=== PATIENT | female | born 1970 | race Caucasian/White ===

== ENCOUNTER 2019-12-02 16:38 | Outpatient (REF) | payer OTHER, SELFPAY | END 2019-12-02 16:39 | disposition home or self-care (01) | LOC: HO.LAB 16:38 | PROVIDERS: PCP Internal Medicine; Visit Provider Internal Medicine | DX: Z20.828 Contact with and (suspected) exposure to other viral communicable diseases (principal) | CPT/HCPCS: 36415; 87635 ==

== ENCOUNTER 2020-01-17 07:20 | Emergency (ER) | payer OTHER, SELFPAY ==
--- NOTE | 2020-01-17 07:26 | ED_ITS ---
HPI - Abdominal Pain General Chief Complaint: Abdominal Pain Stated Complaint: abd pain Time Seen by Provider: 01/17/20 07:26 Source: patient Mode of arrival: ambulatory Limitations: no limitations History of Present Illness HPI narrative: woke up at 3am with epigastric pain with nausea. Patient has a history of gastric bypass, hysterectomy and tubal ligation. MD elicited complaint: abdominal pain Onset (ago): hour(s) Pain Consistency: constant Location: epigastric Severity: moderate Quality: stabbing and sharp Radiation: epigastric Migration to: other (back) Exacerbating factors: other (sitting) Associated symptoms: nausea Related Data Previous Rx's Medication Instructions Recorded sucralfate [Carafate] 10 ml PO BID #200 ml 01/17/20 Allergies Allergy/AdvReac Type Severity Reaction Status Date / Time Sulfacet-R Allergy Unknown Hives Uncoded 01/17/20 07:34 Review of Systems Constitutional: Reports no additional constitutional complaints Eyes: Reports no additional eye complaints Denies dizziness Cardiovascular: Reports no additional cardiovascular complaints Respiratory: Reports as per HPI Gastrointestinal: Reports no additional gastrointestinal complaints Genitourinary: Reports no additional female genitourinary complaints Musculoskeletal: Reports no additional musculoskeletal complaints Skin/Breast: Denies rash Reports system reviewed and no additional complaints, except as documented, Denies dizziness and Denies Sensory deficit (Neuro) Psychiatric: Denies anxiety Physical Exam Vital Signs: Vital Signs: Last Vital Signs Temp 97.9 F 01/17/20 07:29 Pulse 78 01/17/20 10:24 Resp 16 01/17/20 10:24 BP 112/56 L 01/17/20 10:24 Pulse Ox 98 01/17/20 10:24 Body Mass Index 24.2 Const: General: healthy appearing Nutritional Appearance: average body habitus Orientation/consciousness: oriented to person and patient oriented x3 Limitations: no limitations HENMT: Head: Yes normal to inspection Ears: external ears normal General nose exam: Normal external nose present Mouth: Normal oral and palatal mucosa present and oropharynx normal Throat: Yes posterior oropharynx normal Eyes: General: appearance normal, both eyes and all related structures Neck: Other: supple Neck: Yes normal visual inspection Chest: Chest palpation & inspection: normal inspection of the chest Resp: Auscultation: clear to auscultation bilaterally Cardio: Jugular venous distension: no JVD Rate: regular rate Rhythm: regular rhythm Heart sounds: S1 normal heart sound present and S2 normal heart sound present GI: Other: epigastric pain Inspection: Yes normal to inspection Palpation (GI): Soft to palpation, Tenderness to palpation present (GI) and No hepatosplenomegaly present Auscultation: normal bowel sounds : Other: rectal heme negative General: Yes no CVA tenderness Back/Spine/Pelvis: Back: no CVA tenderness Skin: General skin exam: no rashes or lesions noted Neuro: General: oriented to person and patient oriented x3 Cranial nerves: Yes CN's II-XII intact bilaterally Motor exam (neuro): 5/5 motor strength present throughout Sensory Exam: No Sensory deficit (Neuro) Extrem: General: Yes normal to inspection Psych: Appearance: grossly normal Course Course Course Narrative: unofficial bedside ultrasound show no stones Reevaluation(s) Reevaluation #1: resting comfortably MDM - Abdominal Pain MDM Narrative Medical decision making narrative: LFTs, lipase all normal. Slight HCT drop, rectal heme negative will start carafate for gastritis Differential Diagnosis Differential diagnosis: Likely abdominal pain and gastritis Lab Data Result diagrams: 01/17/20 08:11 01/17/20 08:11 Labs: Lab Results 01/17/20 01/17/20 01/17/20 Range/Units 08:11 08:11 08:11 WBC 7.4 (4.8-10.8) X10*3/uL RBC 4.46 (4.20-5.50) X10*6/uL Hgb 13.0 (12.0-16.0) g/dl Hct 39.3 (37-47) % MCV 88.1 (80-98) fL MCH 29.1 (27.0-33.0) pg MCHC 33.1 (31.0-35.0) g/dl RDW 12.6 (11.0-16.0) % Plt Count 254 (160-400) X10*3/uL MPV 9.8 (9.4-12.3) fL Immature Gran % (Auto) 0.3 (0.0-0.4) % Neut % (Auto) 51.3 (45-73) % Lymph % (Auto) 34.1 (20-40) % Grayson % (Auto) 8.7 (2-11) % Eos % (Auto) 4.8 H (0-4) % Baso % (Auto) 0.8 (0-2) % Lymph # (Auto) 2.5 (1.2-4.9) X10*3/uL Grayson # (Auto) 0.7 (0.1-1.2) X10*3/uL Eos # (Auto) 0.4 (0.0-0.4) X10*3/uL Baso # (Auto) 0.1 (0.0-0.2) X10*3/uL Abs Immat Gran (auto) 0.02 (0.00-0.03) X10*3/uL Absolute Neuts (auto) 3.8 (2.0-8.3) X10*3/uL Absolute Nucleated RBC 0.000 (0.0-0.012) X10*3/uL Nucleated RBC % (auto) 0.0 (0.0-0.2) /100WBC Sodium 139 (135-145) mmol/L Potassium 3.8 (3.3-5.1) mmol/l Chloride 108 (96-108) mmol/L Carbon Dioxide 23 (22-29) mmol/L Anion Gap 12 (12-20) BUN 10 (9-16) mg/dL Creatinine 0.67 (0.5-1.4) mg/dL Estim Creat Clear Calc 86.7 Estimated GFR > 60 Random Glucose 148 H (60-115) mg/dL Calcium 8.3 L (8.4-10.2) mg/dL Total Bilirubin 0.5 (0.0-1.0) mg/dL Direct Bilirubin 0.2 (0.0-0.5) mg/dL AST 13 (5-31) U/L ALT 14 (0-31) U/L Alkaline Phosphatase 54 (39-117) U/L Total Protein 6.0 L (6.5-8.0) g/dL Albumin 3.6 (3.5-5.0) g/dL Lipase 19 Cancelled (8-78) U/L Discharge Plan Discharge Clinical Impression: Gastritis Qualifiers: Gastritis type: unspecified gastritis Chronicity: acute Gastritis bleeding: without bleeding Qualified Code(s): K29.00 - Acute gastritis without bleeding Patient Disposition: Home, Self-Care Instructions: Gastritis (ED) Prescriptions: New sucralfate [Carafate] 100 mg/mL suspension 10 ml PO BID Qty: 200 RF: 0 Referrals: Po,Althea Ken MD [Primary Care Provider] - 2 days [facility] Past Medical History Surgical History (Updated 01/17/20 @ 07:32 by Tania Enciso) Gastric bypass status for obesity H/O tubal ligation H/O: hysterectomy Social History Social History Smoking Status: Former smoker Use of substances other than those prescribed or required for medical reasons: No Advance Directives: No Advance Directives Information Provided: Yes
[2020-01-17 07:29] VITALS: BP 136/52; PULSE 76; RESP 16; TEMP 36.6; O2SAT 100; BMI 24.2
[2020-01-17 08:18] LABS: MANUAL DIFF FLAG NO
[2020-01-17 08:21] LABS: Basophils Absolute Auto 0.1 X10*3/uL (0.0-0.2); Basophils Percent Auto 0.8 % (0-2); Eosinophils Absolute Auto 0.4 X10*3/uL (0.0-0.4); Eosinophils Percent Auto 4.8 % (0-4); Hematocrit 39.3 % (37-47); Imm Gran Abs Auto 0.02 X10*3/uL (0.00-0.03); Imm Gran Pct Auto 0.3 % (0.0-0.4); Lymphocytes Absolute Auto 2.5 X10*3/uL (1.2-4.9); Lymphocytes Percent Auto 34.1 % (20-40); Mean Corpuscular HGB Conc 33.1 g/dl (31.0-35.0); Mean Corpuscular Hemoglobin 29.1 pg (27.0-33.0); Mean Corpuscular Volume 88.1 fL (80-98); Mean Platelet Volume 9.8 fL (9.4-12.3); Monocytes Absolute Auto 0.7 X10*3/uL (0.1-1.2); Monocytes Percent Auto 8.7 % (2-11); Neutrophils Absolute Auto 3.8 X10*3/uL (2.0-8.3); Neutrophils Percent Auto 51.3 % (45-73); Platelet Count 254 X10*3/uL (160-400); Red Blood Count 4.46 X10*6/uL (4.20-5.50); Red Cell Distribution Width 12.6 % (11.0-16.0); White Blood Count 7.4 X10*3/uL (4.8-10.8)
[2020-01-17] MEDS: Pantoprazole Sodium 40 MG/10 ML VIAL IVPUSH (08:23)
[2020-01-17] MEDS: Magnesium Hydrox/Alum Hydrox 30 ML ORAL.SUSP PO (08:24)
[2020-01-17] MEDS: PHENobarb/Hyoscy/Atropine/Scop 10 ML ELIXIR PO (08:24)
[2020-01-17] MEDS: ondansetron HCL 4 MG/2 ML VIAL IVPUSH (08:25)
[2020-01-17] MEDS: Lidocaine HCl Viscous 2 % 15 ML SOLUTION MUCOUS MEM (08:25)
[2020-01-17 08:48] LABS: Alanine Aminotransferase 14 U/L (0-31); Albumin Level 3.6 g/dL (3.5-5.0); Alkaline Phosphatase 54 U/L (39-117); Anion Gap 12 (12-20); Aspartate Amino Transferase 13 U/L (5-31); Bilirubin Direct 0.2 mg/dL (0.0-0.5); Bilirubin Total 0.5 mg/dL (0.0-1.0); Blood Urea Nitrogen 10 mg/dL (9-16); Calcium 8.3 mg/dL (8.4-10.2); Carbon Dioxide 23 mmol/L (22-29); Chloride 108 mmol/L (96-108); Creatinine Clr Calc Pharmacy 86.7; Estimated Glomerular Filt Rate > 60; Glucose Random 148 mg/dL (60-115); Lipase 19 U/L (8-78); Potassium 3.8 mmol/l (3.3-5.1); Sodium 139 mmol/L (135-145)
[2020-01-17 10:24] VITALS: BP 112/56; PULSE 78; RESP 16; O2SAT 98
--- NOTE | 2020-01-17 10:31 | PC.NURSE ---
Pt reports no pain s/p medication interventions. Dr El and this RN at bedside for rectal exam and negative. Plan for d/c home with new rx and f/u with pcp and GI
== END 2020-01-17 10:46 | disposition home or self-care (01) ==
PROVIDERS: Emergency Provider Emergency Medicine; PCP Internal Medicine
DX: R10.13 Epigastric pain (principal); K29.00 Acute gastritis without bleeding; Z87.891 Personal history of nicotine dependence
CPT/HCPCS: 36415; 80048; 80076; 83690; 85025; 96374; 96375; 99284; J2405

== ENCOUNTER 2020-01-24 06:28 | Outpatient (REF) | payer OTHER, SELFPAY | END 2020-01-24 06:29 | disposition home or self-care (01) | LOC: HO.LAB 06:28 | PROVIDERS: Visit Provider Internal Medicine | DX: Z20.828 Contact with and (suspected) exposure to other viral communicable diseases (principal) | CPT/HCPCS: C9803; U0003 ==

== ENCOUNTER 2021-09-11 15:51 | Outpatient (REF) | payer OTHER, SELFPAY ==
--- NOTE | ~2021-09-11 | MM_ITS ---
EXAMINATION: MM SCREENING DIGITAL BREAST TOMOSYNTHESIS, BILATERAL CLINICAL INFORMATION: Screening. Asymptomatic. The lifetime risk of breast cancer based on the Tyrer-Cuzick Model is 5%. COMPARISON: Mammography: 01/25/2018, 12/23/2017, 12/16/2016, 02/28/2015 TECHNIQUE: Digital breast tomosynthesis is performed in both the craniocaudal and mediolateral oblique views along with computer-aided detection (CAD). Synthesized 2D images are generated from the tomosynthesis. FINDINGS: There are scattered areas of fibroglandular density (ACR BI-RADS breast composition Category b). There are no significant masses, abnormal calcifications, or other abnormalities. Breast tissue composition borders on predominantly fatty. Background stromal markings are normal. No developing density. No significant changes. MM/MM tomosynthesis screening BI IMPRESSION: No mammographic evidence of malignancy. ASSESSMENT: BI-RADS 1: Negative RECOMMENDATION: Routine annual mammography screening. This patient's information was entered into a reminder system with a target due date for their next mammogram.
== END 2021-09-11 15:52 | disposition home or self-care (01) ==
LOC: HO.MAMMO 15:51
PROVIDERS: Visit Provider Internal Medicine
DX: Z12.31 Encounter for screening mammogram for malignant neoplasm of breast (principal)
CPT/HCPCS: 77063; 77067

== ENCOUNTER 2022-02-19 06:00 | Outpatient (REF) | payer OTHER, SELFPAY ==
[2022-02-19 07:25] LABS: Hematocrit 39.9 % (37.0-47.0); Hemoglobin 12.7 g/dl (12.0-16.0); Mean Corpuscular HGB Conc 31.8 g/dl (31.0-35.0); Mean Corpuscular Hemoglobin 26.7 pg (27.0-33.0); Mean Corpuscular Volume 83.8 fL (80.0-98.0); Mean Platelet Volume 9.9 fL (9.4-12.3); Platelet Count 281 X10*3/uL (160-400); Red Blood Count 4.76 X10*6/uL (4.20-5.50); Red Cell Distribution Width 13.2 % (11.0-16.0); White Blood Count 7.9 X10*3/uL (4.8-10.8)
[2022-02-19 07:36] LABS: Estimated Average Glucose 180 mg/dL; Hemoglobin A1c % 7.9 %
[2022-02-19 08:10] LABS: Alanine Aminotransferase 17 U/L (0-31); Alkaline Phosphatase 80 U/L (39-117); Anion Gap 12 (12-20); Aspartate Amino Transferase 15 U/L (5-31); Bilirubin Total 0.5 mg/dL (0.0-1.0); Blood Urea Nitrogen 8 mg/dL (9-16); Calcium 9.5 mg/dL (8.4-10.2); Carbon Dioxide 27 mmol/L (22-29); Chloride 105 mmol/L (96-108); Cholesterol 171 mg/dL; Estimated Glomerular Filt Rate > 60; Glucose Random 203 mg/dL (60-115); HDL Cholesterol 62 mg/dL; LDL Cholesterol Calculated 89 mg/dl; Potassium 4.5 mmol/L (3.3-5.1); Sodium 139 mmol/L (135-145); TSH reflex Free T4 1.52 uIU/mL (0.32-4.0); Total Protein 6.7 g/dL (6.5-8.0); Triglycerides 103 mg/dL; Vitamin D 25-OH Total 16.5 ng/mL (>30)
[2022-02-19 08:23] LABS: Folate 17.6 ng/mL (> or = 4.0)
[2022-02-19 08:49] LABS: Vitamin B12 454 pg/mL (200-900)
== END 2022-02-19 06:01 | disposition home or self-care (01) ==
LOC: HO.LAB 06:00
PROVIDERS: PCP Internal Medicine; Visit Provider Nurse Practitioner Family
DX: Z13.29 Encounter for screening for other suspected endocrine disorder (principal); E78.00 Pure hypercholesterolemia, unspecified; E11.65 Type 2 diabetes mellitus with hyperglycemia; I10 Essential (primary) hypertension
CPT/HCPCS: 36415; 80053; 80061; 82306; 82607; 82746; 83036; 84443; 85027

== ENCOUNTER 2022-03-23 10:29 | Emergency (ER) | payer OTHER, SELFPAY ==
[2022-03-23 10:33] VITALS: BP 127/78; PULSE 84; RESP 18; TEMP 36.7; O2SAT 97; BMI 25.7
--- NOTE | 2022-03-23 10:39 | ED_ITS ---
HPI - Skin/Abscess/Foreign Bdy General Chief complaint: Skin/Abscess/Foreign Body Stated complaint: swollen abscess on head Time Seen by Provider: 03/23/22 10:37 Source: patient Mode of arrival: ambulatory History of Present Illness HPI narrative: 51-year-old female with a past medical history of bipolar, HLD, HTN, insomnia, IBS, diabetes, presenting to the ED complaining of infected pimple/abscess to left forehead x1 week. States area initially started off small, tried to pick at it herself at home, then developed increasing swelling and pain since last night. Reports mild continue drainage from area. Denies fever, chills, sore throat, ear pain MD complaint: abscess/boil Onset (ago): day(s) Related Data Home Medications Medication Instructions Recorded Confirmed bupropion HCl 100 mg tablet,12 hr 100 mg PO TID 04/30/20 08/21/21 sustained-release (Wellbutrin SR) hydroxyzine pamoate 25 mg capsule 25 mg PO BID PRN 04/30/20 08/21/21 (Vistaril) lamotrigine 200 mg tablet 200 mg PO BID 04/30/20 08/21/21 zolpidem 10 mg tablet (Ambien) 10 mg PO BEDTIME PRN 04/30/20 08/21/21 Previous Rx's Medication Instructions Recorded meclizine 25 mg tablet 25 mg PO BID PRN dizziness 1 week 02/07/21 #14 tabs multivitamin (Daily-Emelyn tablet) 1 tab PO DAILY #90 tabs 05/17/21 pantoprazole 40 mg tablet,delayed 40 mg PO DAILY 90 days #90 tabs 12/22/21 release blood sugar diagnostic (FreeStyle #100 ea 02/20/22 Lite Strips) blood-glucose meter (FreeStyle #1 ea 02/20/22 Lite Meter kit) cholecalciferol (vitamin D3) 50 50 mcg PO DAILY #90 tabs 02/20/22 mcg (2,000 unit) tablet lancets 28 gauge (FreeStyle #100 ea 02/20/22 Lancets) metformin 500 mg tablet,extended 500 mg PO BID #60 tabs 02/20/22 release 24 hr cephalexin 500 mg capsule 500 mg PO QID 7 days #28 caps 03/23/22 doxycycline hyclate 100 mg tablet 100 mg PO BID 7 days #14 tabs 03/23/22 Allergies Allergy/AdvReac Type Severity Reaction Status Date / Time Sulfacet-R Allergy Unknown Hives Uncoded 03/23/22 10:35 Review of Systems Review of Systems: Constitutional: No Fever, No Chills ENT/Mouth: No Ear Pain, No Nasal Congestion, No Sinus Pain, No Hoarseness, No sore throat, No Rhinorrhea, No Swallowing Difficulty Cardiovascular: No Chest Pain, No SOB Respiratory: No Cough, No Wheezing Gastrointestinal: No Nausea, No Vomiting, No Diarrhea, No Constipation, No Abdominal pain Musculoskeletal: No joint pain, No Myalgias, No Joint Swelling Skin: +Skin Lesions, No rash Neuro: No Weakness, No Numbness, No Paresthesias Yes all other systems are reviewed and are negative Constitutional: Constitutional: Reports as per [facility] Past Medical History Attestation statement: The following information was validated with the patient. Medical History Allergic rhinitis Bipolar disorder Carpal tunnel syndrome ZHAO I (cervical intraepithelial neoplasia I) Hypercholesterolemia Hypertension Insomnia Irritable bowel syndrome Left otitis media Type 2 diabetes mellitus with hyperglycemia Urinary incontinence Vitamin D deficiency Surgical History Gastric bypass status for obesity H/O tubal ligation H/O: hysterectomy Social History Social History Housing: House Alcohol intake: current Alcohol intake frequency: does not drink Patient Tobacco Use Status: Former Tobacco user Tobacco use type: Cigarette e-Cigarette/Vaping Use: Never Used Advance Directives: No Advance Directives Information Provided: Yes Patient : No service: No Current occupational status: employed Cognitive needs: No Hearing needs: No Vision needs: No Physical Exam Vital Signs: Vital Signs: Last Vital Signs Temp 98.0 F 03/23/22 10:33 Pulse 84 03/23/22 10:33 Resp 18 03/23/22 10:33 BP 127/78 03/23/22 10:33 Pulse Ox 97 03/23/22 10:33 O2 Del Method 03/23/22 10:33 BMI result Body Mass Index 25.7 Const: General: cooperative, healthy appearing and no acute distress Orientation/consciousness: patient oriented x3 Limitations: no limitations HEENT: Other: + pointing erythematous abscess/pimple to left upper forehead with mild overlying scabbing. +ttp. +Extending swelling and tenderness to left eyebrow and into hairline. No fluctuance Head: Yes atraumatic Ears: hearing grossly normal bilaterally, TM's normal bilaterally and mastoids normal General nose exam: Normal external nose present Face and sinus: Yes normal facial exam Mouth: Normal oral and palatal mucosa present Throat: Yes posterior oropharynx normal, Yes tonsils normal, Yes uvula midline, No peritonsillar mass, No uvula laterally displaced and No uvular edema Eyes: General: appearance normal, both eyes and all related structures EOM: EOMs intact bilaterally Neck: Neck: Yes normal visual inspection, Yes no lymphadenopathy, Yes no meningeal signs and No anterior neck swelling Resp: Effort & Inspection: normal respiratory effort and no respiratory distress Cardio: Rate: regular rate Skin: Rashes: no rashes Wounds: no wounds Neuro: General: patient oriented x3, tone normal and no meningeal signs Gait exam (Neuro): Normal gait present Extrem: General: Yes normal to inspection Medications Administered Discontinued Medications Generic Name Dose Route Start Last Admin Trade Name Freq PRN Reason Stop Dose Admin Lidocaine HCl 2 ml 03/23/22 10:46 03/23/22 11:25 Lidocaine Hcl 1 % Mpf 2 Ml Vial INFILTRATI 03/23/22 10:47 2 ml ONCE ONE Administration Medical Decision Making Medical Decision Making [facility] Narrative: 51-year-old female with a past medical history of bipolar, HLD, HTN, insomnia, IBS, diabetes, presenting to the ED complaining of infected pimple/abscess to left forehead x1 week. On exam vital signs stable, NAD, nontoxic appearing, physical exam as above. Concern for infected acne vulgaris/abscess with surrounding edema and cellulitis. Low suspicion for deeper infection, no evidence of otitis. No appreciable neck swelling or torticollis. Oropharynx WNL. Plan: I & D, p.o. antibiotics Differential Diagnosis Differential Diagnoses: The differential diagnosis associated with the presentation includes As above External Record Review External record reviewed: Office record and Outpatient record Prescription Management I considered prescription management with: Pain Medication and Antibiotic Procedures Abscess I/D Site: face Side (if applicable): left Local Anesthetic: lidocaine 1% Amount of anesthesia used (mL): 0.5 Technique: incised with blade Sent for culture/gram staining?: No Irrigation: No Packing used?: none Discharge Plan Discharge Clinical Impression: Abscess, Cellulitis Patient Disposition: Home, Self-Care Instructions: Cellulitis (ED), Abscess (ED) Additional Instructions: Your abscess was open today in the emergency department. Apply warm compresses at home. Take Keflex and doxycycline as prescribed. PLEASE BE RE-EVALUATED IN 2 DAYS If area worsens, spreads, becomes red, has pus drainage or your fever return to the emergency department Prescriptions: New cephalexin 500 mg capsule 500 mg PO QID 7 Days Qty: 28 0RF doxycycline hyclate 100 mg tablet 100 mg PO BID 7 Days Qty: 14 0RF No Action multivitamin [Daily-Emelyn] Tablet 1 tab PO DAILY Qty: 90 3RF pantoprazole 40 mg tablet,delayed release (DR/EC) 40 mg PO DAILY 90 Days Qty: 90 1RF cholecalciferol (vitamin D3) 50 mcg (2,000 unit) tablet 50 mcg PO DAILY Qty: 90 0RF metformin 500 mg tablet extended release 24 hr 500 mg PO BID Qty: 60 2RF hydroxyzine pamoate [Vistaril] 25 mg capsule 25 mg PO BID PRN bupropion HCl [Wellbutrin SR] 100 mg tablet sustained-release 12 hr 100 mg PO TID lamotrigine 200 mg tablet 200 mg PO BID zolpidem [Ambien] 10 mg tablet 10 mg PO BEDTIME PRN meclizine 25 mg tablet 25 mg PO BID PRN (Reason: dizziness) 7 Days Qty: 14 0RF (DME) blood-glucose meter [FreeStyle Lite Meter] Kit See Rx Instructions .ROUTE .MEDSUPPLY Qty: 1 0RF Rx Instructions: As directed (DME) FreeStyle Lite Strips Strip See Rx Instructions .ROUTE .MEDSUPPLY Qty: 100 3RF Rx Instructions: As directed check the BS QD (DME) lancets [FreeStyle Lancets] 28 gauge misc See Rx Instructions .ROUTE .MEDSUPPLY Qty: 100 3RF Rx Instructions: As directed check BS QD Referrals: Po,Althea Ken MD [Primary Care Provider] - 2 days Stand Alone Forms: Work/School Release Interventions: ED Discharge Assessment Last Done: 03/23/22 11:27 Discharge Date/Time: 03/23/22 11:28
[2022-03-23] MEDS: Lidocaine HCl 1 % MPF 2 ML VIAL INFILTRATI (11:25)
== END 2022-03-23 11:28 | disposition home or self-care (01) ==
PROVIDERS: Emergency Provider Emergency Medicine; PCP Internal Medicine
DX: L02.01 Cutaneous abscess of face (principal); Z79.899 Other long term (current) drug therapy
CPT/HCPCS: 10060; 99284

== ENCOUNTER 2022-03-25 10:52 | Emergency (ER) | payer OTHER, SELFPAY ==
[2022-03-25 11:00] VITALS: BP 142/74; PULSE 89; RESP 16; TEMP 36.3; O2SAT 97; BMI 25.7
--- NOTE | 2022-03-25 11:02 | ED_ITS ---
HPI - General Adult General Chief complaint: Skin/Abscess/Foreign Body <MEAGHAN Palmer - Last Filed: 03/25/22 11:04> Stated complaint: Facial abscess/Reaction to meds? <MEAGHAN Palmer Last Filed: 03/25/22 11:04> Time Seen by Provider: 03/25/22 11:43 <MEAGHAN Palmer Last Filed: 03/25/22 11:04> Source: patient <MEAGHAN Saxena Last Filed: 03/25/22 13:33> Mode of arrival: ambulatory <MEAGHAN Saxena Last Filed: 03/25/22 13:33> Limitations: no limitations <MEAGHAN Saxena Last Filed: 03/25/22 13:33> History of Present Illness HPI narrative: 51-year-old female presenting to the ER with complaints of worsening swelling / redness to the left side of her forehead for the past few days worse today. Reports that she was seen here on 03/23/2022 and they attempted to I and D the abscess to her left forehead although she reports that the provider only got blood and no purulent discharge therefore she sent her home on Keflex and doxycycline although she reports she only took 2 doses of each medication and stop taking the medication due to the swelling went down for I and yesterday she was unable to open her eye. Although she reports today the redness and swelling to her I resolved and now she only has redness and swelling to the abscess. She denies any fevers or any other symptoms complaints or concerns at this time. <MEAGHAN Saxena Last Filed: 03/25/22 13:33> MD complaint: Recheck abscess <MEAGHAN Saxena Last Filed: 03/25/22 13:33> Related Data Home medications: Home Medications Medication Instructions Recorded Confirmed bupropion HCl 100 mg tablet,12 hr 100 mg PO TID 04/30/20 08/21/21 sustained-release (Wellbutrin SR) hydroxyzine pamoate 25 mg capsule 25 mg PO BID PRN 04/30/20 08/21/21 (Vistaril) lamotrigine 200 mg tablet 200 mg PO BID 04/30/20 08/21/21 zolpidem 10 mg tablet (Ambien) 10 mg PO BEDTIME PRN 04/30/20 08/21/21 Previous Rx's Medication Instructions Recorded meclizine 25 mg tablet 25 mg PO BID PRN dizziness 1 week 02/07/21 #14 tabs multivitamin (Daily-Emelyn tablet) 1 tab PO DAILY #90 tabs 05/17/21 pantoprazole 40 mg tablet,delayed 40 mg PO DAILY 90 days #90 tabs 12/22/21 release blood sugar diagnostic (FreeStyle #100 ea 02/20/22 Lite Strips) blood-glucose meter (FreeStyle #1 ea 02/20/22 Lite Meter kit) cholecalciferol (vitamin D3) 50 50 mcg PO DAILY #90 tabs 02/20/22 mcg (2,000 unit) tablet lancets 28 gauge (FreeStyle #100 ea 02/20/22 Lancets) metformin 500 mg tablet,extended 500 mg PO BID #60 tabs 02/20/22 release 24 hr cephalexin 500 mg capsule 500 mg PO QID 7 days #28 caps 03/23/22 doxycycline hyclate 100 mg tablet 100 mg PO BID 7 days #14 tabs 03/23/22 tramadol 50 mg tablet 50 mg PO Q8H PRN pain #14 tabs 03/25/22 <MEAGHAN Palmer - Last Filed: 03/25/22 11:04> Allergies/adverse reactions: Allergies Allergy/AdvReac Type Severity Reaction Status Date / Time Sulfacet-R Allergy Unknown Hives Uncoded 03/23/22 10:35 <MEAGHAN Palmer - Last Filed: 03/25/22 11:04> Review of Systems Review of Systems: Constitutional : Denies history of same, Denies any other sites involved, Denies IV drug use, Denies history of MRSA, Denies swollen glands, Denies injury, Denies Fever, Denies Chills, + Sig Pain, Denies Systemic symptoms Cardiovascular : No Chest Pain, No SOB Respiratory : No Dyspnea Gastrointestinal : No abdominal pain Musculoskeletal : No Joint Swelling Skin : + abscess with surrounding erythema, No skin laceration, No Foreign bodies, No spreading rash, Denies bites, Denies discharge, Neuro : No Weakness, No Numbness/tingling Psych : No SI/HI/thoughts of self injury <MEAGHAN Saxena - Last Filed: 03/25/22 13:33> Yes all other systems are reviewed and are negative <MEAGHAN Saxena - Last Filed: 03/25/22 13:33> [facility] Past Medical History Attestation statement: The following information was validated with the patient. <MEAGHAN Saxena - Last Filed: 03/25/22 13:33> Source: old records reviewed and nursing notes reviewed <MEAGHAN Saxena - Last Filed: 03/25/22 13:33> Medical History: Medical History Allergic rhinitis Bipolar disorder Carpal tunnel syndrome ZHAO I (cervical intraepithelial neoplasia I) Hypercholesterolemia Hypertension Insomnia Irritable bowel syndrome Left otitis media Type 2 diabetes mellitus with hyperglycemia Urinary incontinence Vitamin D deficiency <MEAGHAN Palmer - Last Filed: 03/25/22 11:04> Surgical History: Surgical History Gastric bypass status for obesity H/O tubal ligation H/O: hysterectomy <MEAGHAN Palmer - Last Filed: 03/25/22 11:04> Social History Social History: Social History Housing: House Alcohol intake: current Alcohol intake frequency: does not drink Patient Tobacco Use Status: Former Tobacco user Tobacco use type: Cigarette e-Cigarette/Vaping Use: Never Used Advance Directives: No Advance Directives Information Provided: Yes service: No Current occupational status: employed Cognitive needs: No Hearing needs: No Vision needs: No <MEAGHAN Palmer - Last Filed: 03/25/22 11:04> Physical Exam ED Vital Signs: Vital Signs - 24 hr 03/25/22 11:00 Temperature 97.3 F Pulse Rate 89 Respiratory Rate 16 Blood Pressure 142/74 H Pulse Oximetry 97 Oxygen Delivery Method Room Air BMI result Body Mass Index 25.7 <MEAGHAN Palmer - Last Filed: 03/25/22 11:04> Vital Signs - 24 hr 03/25/22 11:00 Temperature 97.3 F Pulse Rate 89 Respiratory Rate 16 Blood Pressure 142/74 H Pulse Oximetry 97 Oxygen Delivery Method Room Air BMI result Body Mass Index 25.7 Vital signs have been reviewed and all within normal limits <MEAGHAN Saxena - Last Filed: 03/25/22 13:33> Appearance: Alert. Oriented X3. No acute distress. Head: Normal external exam. Normocephalic. Eyes: PERRLA. EOMI. Conjunctiva and sclera normal. Eyelids normal. ENT: Pharynx normal. Uvula midline. Moist mucous membranes. No trismus noted. No drooling noted. No muffled voice noted. Neck: Normal inspection. Neck supple. FROM. No adenopathy. No meningeal signs. CVS: Normal heart rate and rhythm. Heart sound normal. No murmurs noted. Pulses normal throughout. Respiratory: No respiratory distress. Painless inspiration. Back: Full range of motion noted. Skin: Skin warm and dry. Normal skin color. Normal skin turgor. to left forehead patient has moderate soft tissue swelling / fluctuance with a purulent appearing abscess with mild surrounding erythema. No streaking or induration is noted. Patient does have mild soft tissue swelling to left periorbital area although there is no erythema to left periorbital area. Extraocular movements are intact. No additional rashes/lesions/lacerations noted. Extremities: Extremities exhibit normal range of motion. Extremities nontender. Neuro: Oriented X 3. No motor deficit. No sensory deficit. Reflexes normal. Normal steady gait. CN's II-XII intact bilaterally? <MEAGHAN Saxena - Last Filed: 03/25/22 13:33> Course Course Course Narrative: RME - 51 yo female presenting for evaluation of a left sided forehead abscess associated with new onset left sided facial swelling that started yesterday. Was seen here recently and started and keflex and doxycycline. Stopped taking keflex yesterday because she thought it might be an allergic reaction. Left sided facial swelling includes left eye that was swollen shut yesterday but improved today. <MEAGHAN Palmer - Last Filed: 03/25/22 11:04> Reevaluation(s) Reevaluation #1: IMP/Plan: abscess. No systemic toxicity, and pt looks well. patient does have surrounding cellulitis. No streaking noted. Not consistent with periorb ital cellulitis or orbital cellulitis. Not c/w nec fasc/ myositis/ DVT/ osteomyelitis. Patient now status post I&D of abscess. Patient tolerated procedure well. No complications. Will DC home with instructions to continue the antibiotics that she was started on 2 days ago and to finish them as prescribed. To follow up with primary care provider or here if any new or worsening symptoms. Patient understands agrees with this plan. <MEAGHAN Saxena - Last Filed: 03/25/22 13:33> Time: 13:28 <MEAGHAN Saxena - Last Filed: 03/25/22 13:33> Medications Administered Discontinued Medications Generic Name Dose Route Start Last Admin Trade Name Freq PRN Reason Stop Dose Admin Lidocaine HCl 5 ml 03/25/22 12:16 03/25/22 12:39 Lidocaine Hcl 1 % Mpf 5 Ml Vial SUBCUT 03/25/22 12:17 5 ml ONCE ONE Administration <MEAGHAN Palmer - Last Filed: 03/25/22 11:04> Medications Administered Discontinued Medications Generic Name Dose Route Start Last Admin Trade Name Freq PRN Reason Stop Dose Admin Lidocaine HCl 5 ml 03/25/22 12:16 03/25/22 12:39 Lidocaine Hcl 1 % Mpf 5 Ml Vial SUBCUT 03/25/22 12:17 5 ml ONCE ONE Administration <MEAGHAN Saxena - Last Filed: 03/25/22 13:33> Procedures Abscess I/D Site: face <MEAGHAN Saxena - Last Filed: 03/25/22 13:33> Side (if applicable): left <MEAGHAN Saxena - Last Filed: 03/25/22 13:33> Local Anesthetic: lidocaine 1% <MEAGHAN Saxena - Last Filed: 03/25/22 13:33> Amount of anesthesia used (mL): 5 <MEAGHAN Saxena - Last Filed: 03/25/22 13:33> Technique: incised with blade <MEAGHAN Saxena - Last Filed: 03/25/22 13:33> Amount of fluid expressed (mL): 2 <MEAGHAN Saxena Last Filed: 03/25/22 13:33> Sent for culture/gram staining?: No <MEAGHAN Saxena Last Filed: 03/25/22 13:33> Irrigation: Yes <MEAGHAN Saxena - Last Filed: 03/25/22 13:33> Packing used?: none <MEAGHAN Saxena - Last Filed: 03/25/22 13:33> Complications: other ( No complications patient tolerated procedure well) <MEAGHAN Saxena - Last Filed: 03/25/22 13:33> Discharge Plan Discharge Clinical Impression: Abscess of forehead <MEAGHAN Palmer Last Filed: 03/25/22 11:04> Patient Disposition: Home, Self-Care <MEAGHAN Palmer - Last Filed: 03/25/22 11:04> Instructions: Abscess Incision and Drainage (DC) <MEAGHAN Palmer - Last Filed: 03/25/22 11:04> Additional Instructions: Continue taking the antibiotics that you were prescribed on 03/23/2022 return if you develop any redness going down the face or inability to open the eye or any fevers any worsening symptoms. <MEAGHAN Palmer - Last Filed: 03/25/22 11:04> Prescriptions: New tramadol 50 mg tablet 50 mg PO Q8H PRN (Reason: pain) Qty: 14 0RF Rx Instructions: May partially fill upon patient request No Action multivitamin [Daily-Emelyn] Tablet 1 tab PO DAILY Qty: 90 3RF pantoprazole 40 mg tablet,delayed release (DR/EC) 40 mg PO DAILY 90 Days Qty: 90 1RF cholecalciferol (vitamin D3) 50 mcg (2,000 unit) tablet 50 mcg PO DAILY Qty: 90 0RF metformin 500 mg tablet extended release 24 hr 500 mg PO BID Qty: 60 2RF cephalexin 500 mg capsule 500 mg PO QID 7 Days Qty: 28 0RF doxycycline hyclate 100 mg tablet 100 mg PO BID 7 Days Qty: 14 0RF hydroxyzine pamoate [Vistaril] 25 mg capsule 25 mg PO BID PRN bupropion HCl [Wellbutrin SR] 100 mg tablet sustained-release 12 hr 100 mg PO TID lamotrigine 200 mg tablet 200 mg PO BID zolpidem [Ambien] 10 mg tablet 10 mg PO BEDTIME PRN meclizine 25 mg tablet 25 mg PO BID PRN (Reason: dizziness) 7 Days Qty: 14 0RF (DME) blood-glucose meter [FreeStyle Lite Meter] Kit See Rx Instructions .ROUTE .MEDSUPPLY Qty: 1 0RF Rx Instructions: As directed (DME) FreeStyle Lite Strips Strip See Rx Instructions .ROUTE .MEDSUPPLY Qty: 100 3RF Rx Instructions: As directed check the BS QD (DME) lancets [FreeStyle Lancets] 28 gauge misc See Rx Instructions .ROUTE .MEDSUPPLY Qty: 100 3RF Rx Instructions: As directed check BS QD <MEAGHAN Palmer - Last Filed: 03/25/22 11:04> Referrals: Althea Singer MD [Primary Care Provider] - 2 days <MEAGHAN Palmer - Last Filed: 03/25/22 11:04> Stand Alone Forms: Work/School Release <MEAGHAN Palmer - Last Filed: 03/25/22 11:04>
[2022-03-25] MEDS: Lidocaine HCl 1 % MPF 5 ML VIAL SUBCUT (12:39)
== END 2022-03-25 13:43 | disposition home or self-care (01) ==
PROVIDERS: Emergency Provider Emergency Medicine; PCP Internal Medicine
DX: L02.01 Cutaneous abscess of face (principal); Z79.899 Other long term (current) drug therapy
CPT/HCPCS: 10060; 99282; 99284

== ENCOUNTER 2022-05-01 13:43 | Outpatient (REF) | payer OTHER, SELFPAY ==
--- NOTE | 2022-05-01 08:45 | EMG_ITS ---
Right median and ulnar motor and sensory studies were performed. Right radial sensory studies were performed and needle examination was performed. IMPRESSION: 1. Moderately severe right median neuropathy across carpal tunnel. 2. Mild right ulnar neuropathy, not well localized. MD NAS Hernandez/MECHE / [id number]
== END 2022-05-01 13:44 | disposition home or self-care (01) ==
LOC: HO.NEURO 13:43
PROVIDERS: PCP Internal Medicine; Visit Provider Internal Medicine
DX: G56.00 Carpal tunnel syndrome, unspecified upper limb (principal)
CPT/HCPCS: 95886; 95909

== ENCOUNTER → 2022-06-30 15:46 | Outpatient (BNVA) | payer OTHER, SELFPAY | PROVIDERS: PCP Internal Medicine; Visit Provider Nurse Practitioner Family | DX: Z12.11 Encounter for screening for malignant neoplasm of colon (principal); K21.9 Gastro-esophageal reflux disease without esophagitis | CPT/HCPCS: 99202 ==

== ENCOUNTER 2023-02-26 16:04 | Outpatient (AMB) | payer OTHER, SELFPAY ==
[2023-02-26 16:06] VITALS: BP 150/70; PULSE 83; O2SAT 96; BMI 25.5
--- NOTE | 2023-02-26 16:06 | A.OFFPC_ITS ---
Vital Signs 02/26/23 16:06 02/26/23 16:38 Height 5 ft 4 in Weight 148 lb 8 oz BMI 25.5 BP 150/70 H 140/80 H Blood Pressure Location Lt brachial Lt brachial Position Sitting Sitting Pulse 83 Pulse Source Pulse Oximeter Pulse Oximetry (%) 96 Oxygen Delivery Method Room Air Intake Visit Reasons: Annual Exam Produce Inspector Required: No Accompanied by: Self / Same As Patient Allergies Sulfacet-R Allergy (Unknown, Uncoded 06/30/22 15:55) Hives Medication List - Last Reconciled 02/26/23 by Althea Singer MD blood sugar diagnostic (FreeStyle Lite Strips) As directed check the BS QD blood-glucose meter (FreeStyle Lite Meter kit) As directed bupropion HCl (Wellbutrin SR) 100 mg PO TID cholecalciferol (vitamin D3) 50 mcg PO DAILY lamotrigine 200 mg PO BID lancets (FreeStyle Lancets) As directed check BS QD meclizine 25 mg PO BID PRN 1 week metformin 1,000 mg PO BID multivitamin (Daily-Emelyn tablet) 1 tab PO DAILY pantoprazole 40 mg PO DAILY 90 days zolpidem (Ambien) 10 mg PO BEDTIME PRN Tobacco use date assessed: 05/26/22 Dental Screening Dental Screen Date: 02/26/23 Did you have a dental visit in the last 12 months?: No Did you have a dental problem in the last 6 months where you did not have access to dental care?: No Was dental information given to patient?: Patient has dentist HPI Annual Exam HPI Details 52-year-old female with a history of gil betes mellitus hypertension hypercholesterolemia bipolar disorder history of gastric bypass GERD coming in for physical exam last seen in April 2022. Mammogram is due colonoscopy is due patient did see gastroenterology- LIZ oliveira Medical History (Updated 02/26/23 @ 16:44 by Althea Singer MD) Breast cancer screening by mammogram Colon cancer screening Screening for hypothyroidism Left otitis media ZHAO I (cervical intraepithelial neoplasia I) Irritable bowel syndrome Urinary incontinence Allergic rhinitis Insomnia Vitamin D deficiency Bipolar disorder Hypercholesterolemia Hypertension Carpal tunnel syndrome Type 2 diabetes mellitus with hyperglycemia Surgical History H/O tubal ligation H/O: hysterectomy Gastric bypass status for obesity Family History (Updated 02/26/23 @ 16:42 by Althea Singer MD) Father Heart attack Maternal Uncle Lung cancer Maternal Aunt Colon cancer Social History (Updated 02/26/23 @ 16:43 by Althea Singer MD) Housing: House Alcohol intake: never Patient Tobacco Use Status: Former Tobacco user Tobacco use type: Cigarette Years Smoked: last seen (01/2023) still smoking e-Cigarette/Vaping Use: Never Used service: No Current occupational status: employed Cognitive needs: No Hearing needs: No Vision needs: No Questionnaire Thrive Questionnaire Date Thrive assessed: 05/26/22 YANNA-7 AMB Questionnaire YANNA-7 Date YANNA - 7 assessed: 05/26/22 Source: Developed by Drs. Rony Salmon, Sabina Lua, Eduardo Naylor and colleagues, with an educational dannielle from [employer]. Review of Systems Const Denies poor appetite and Denies weakness Eyes Denies no additional complaints ENT Reports Normal hearing present, Denies dizziness, Denies nasal congestion, Denies tinnitus and Denies sore throat Card Denies chest pain, Denies syncope, Denies rapid heart rate and Denies dyspnea Resp Denies cough and Denies dyspnea GI Denies change in stool character, Reports constipation, Denies diarrhea, Denies nausea and Denies vomiting Denies urinary frequency, Denies difficulty voiding and Denies dysuria Neuro Reports Normal hearing present, Denies confusion, Denies dizziness, Denies syncope and Denies weakness Psych Denies confusion Physical exam (Primary Care) Vital Signs: Last Vital Signs Pulse 83 02/26/23 16:06 BP 150/70 H 02/26/23 16:06 Pulse Ox 96 02/26/23 16:06 Oxygen Delivery Method Room Air 02/26/23 16:06 BMI result Body Mass Index 25.5 Tobacco/Smoking Status: Tobacco use Status Tobacco use date assessed 05/26/22 02/26/23 16:09 Patient Tobacco Use Status Former Tobacco user 02/26/23 16:09 Tobacco use type Cigarette 02/26/23 16:09 e-Cigarette/Vaping Use Never Used 02/26/23 16:09 Thrive Assessment: Date of Thrive Assessment Date Thrive assessed 05/26/22 02/26/23 16:09 Const General: No confusion Orientation/consciousness: No confusion HENMT Head: Yes normocephalic Ears: external ears normal and TM's normal bilaterally Face and sinus: Yes normal facial exam Mouth: moist mucous membranes Throat: Yes tonsils normal Eyes Conjunctivae: conjunctivae normal Pupils: Equal, round and reactive pupils present and Pupil accommodation reflex normal Direct Ophthalmoscopy: normal light reflex Neck Neck: No lymphadenopathy Thyroid: Thyroid normal Chest Chest palpation & inspection: normal inspection of the chest Resp Effort & Inspection: normal respiratory effort and no audible wheezes Auscultation: clear to auscultation bilaterally, no crackles, no wheezes and lung sounds not diminished Cardio Rate: regular rate Rhythm: regular rhythm Peripheral pulses: radial pulses present and dorsalis pedis present GI Other: colon test pending Palpation (GI): no masses Auscultation: normal bowel sounds and normoactive bowel sounds Rectal Exam - Female: deferred Back/Spine/Pelvis Other: pedal pulse and pin prick good, noted nail dystrophy Skin General skin exam: no rashes or lesions noted Rashes: no rashes Neuro General: No confusion Cranial nerves: Yes Equal, round and reactive pupils present and Yes Normal hearing present Cognition (Neuro): normal cognition Gait exam (Neuro): Normal gait present Motor exam (neuro): 5/5 motor strength present throughout Deep tendon reflexes (DTR's): Right brachioradialis reflex intensity grade: 2+, Left brachioradialis reflex intensity grade: 2+, Right patellar reflex intensity grade: 2+ and Left patellar reflex intensity grade: 2+ Extrem General: No edema Results AMB Hemoglobin A1c AMB Hemoglobin A1c 8.0 % Last Edit by Hillary Ashton on 02/26/23 16:21 Results Reviewed Results Reviewed: Laboratory Last Values Hgb A1c (Clinic) 8.0 % (4.0-6.0) H 02/26/23 16:07 Assessment and Plan Assessment & Plan (1) Annual physical exam: Code(s): Z00.00 - Encounter for general adult medical examination without abnormal findings (2) Gastric bypass status for obesity: Comment: Laparoscopic Luca-en-Y Dr. Holliday April 2016 Code(s): Z98.84 - Bariatric surgery status Plan: Continue to follow-up with bariatric surgeon (3) Type 2 diabetes mellitus with hyperglycemia: Code(s): E11.65 - Type 2 diabetes mellitus with hyperglycemia Qualifiers: Diabetes mellitus termination clerk insulin use: without termination clerk use Qualified Code(s): E11.65 - Type 2 diabetes mellitus with hyperglycemia Plan: Decrease the amount of carbohydrate intake, pasta, bread, rice and potatoes are all sugar and that is aside from all the sweet stuff, remember that fruits are good but they are Sweet also. Hemoglobin A1c goal of less than 6.5 patient takes metformin 1000 mg twice a day (4) Hypertension: Code(s): I10 - Essential (primary) hypertension Qualifiers: Hypertension type: essential hypertension Qualified Code(s): I10 - Essential (primary) hypertension Plan: Continue with blood pressure medication. Decrease salt intake and exercise presently not on blood pressure medication (5) Hypercholesterolemia: Code(s): E78.00 - Pure hypercholesterolemia, unspecified Plan: Avoid fried foods, chicken skin, eggs, butter margarine, pastries and meat. Be it pork or beef they have a lot of cholesterol LDL goal of less than 100 and triglyceride of less than 150 (6) Bipolar disorder: Comment: Yonas Salvador Code(s): F31.9 - Bipolar disorder, unspecified Qualifiers: Active/Remission status: currently active Current bipolar episode type: mixed Current episode severity: moderate Qualified Code(s): F31.62 - Bipolar disorder, current episode mixed, moderate Plan: Continue to follow-up with psychiatry and counseling (7) GERD (gastroesophageal reflux disease): Code(s): K21.9 - Gastro-esophageal reflux disease without esophagitis Qualifiers: Esophagitis presence: esophagitis presence not specified Qualified Code(s): K21.9 - Gastro-esophageal reflux disease without esophagitis Plan: Avoid the foods that causes that usually spicy foods, tomato products, juices, c offee, soda and foods that your sensitive to. After eating do not lie down, allow 3-4 hours before in lie down. And keep the head of bed above 30 degrees to avoid the acid from going up. (8) Breast cancer screening by mammogram: Code(s): Z12.31 - Encounter for screening mammogram for malignant neoplasm of breast (9) Tobacco abuse: Code(s): Z72.0 - Tobacco use Plan: need to stop! Orders: Orders Complete Blood Count Auto Diff Today E11.65 - Type 2 diabetes mellitus with hyperglycemia Comprehensive Met. Panel Today E11.65 - Type 2 diabetes mellitus with hyperglycemia Lipid Panel Today E11.65 - Type 2 diabetes mellitus with hyperglycemia, E78.00 - Pure hypercholesterolemia, unspecified Vitamin D 25-OH Total Today E11.65 - Type 2 diabetes mellitus with hyperglycemia Creatinine Urine Today E11.65 - Type 2 diabetes mellitus with hyperglycemia AMB Hemoglobin A1c Today E11.65 - Type 2 diabetes mellitus with hyperglycemia Thyroid Stimulating Hormone Today E11.65 - Type 2 diabetes mellitus with hyperglycemia Vitamin B12 and Folate Today E11.65 - Type 2 diabetes mellitus with hyperglycemia Free T4 (Free Thyroxine) Today E11.65 - Type 2 diabetes mellitus with hyperglycemia Microalbumin, Random (w Creat) Today E11.65 - Type 2 diabetes mellitus with hyperglycemia MM tomosynthesis screening BI Today Z12.31 - Encounter for screening mammogram for malignant neoplasm of breast Medications: New semaglutide (Ozempic) for 4 weeks 0.25 mg (0.368 mL) subcut QWEEK 3 mL 4RF E11.65 - Type 2 diabetes mellitus with hyperglycemia Refilled cholecalciferol (vitamin D3) 50 mcg PO DAILY 90 tabs 0RF R79.89 - Other specified abnormal findings of blood chemistry Coding Level of Care Code Est Pt Prev Care 40-64y(22039) Diagnoses Annual physical exam Z00.00 Gastric bypass status for obesity Z98.84 Type 2 diabetes mellitus with hyperglycemia, without long-term current use of insulin E11.65 Diabetes mellitus shelter insulin use: without termination clerk use Essential hypertension I10 Hypertension type: essential hypertension Hypercholesterolemia E78.00 Bipolar disorder, current episode mixed, moderate F31.62 Active/Remission status: currently active Current bipolar episode type: mixed Current episode severity: moderate Gastroesophageal reflux disease, unspecified whether esophagitis present K21.9 Esophagitis presence: esophagitis presence not specified Breast cancer screening by mammogram Z12.31 Tobacco abuse Z72.0
[2023-02-26 16:38] VITALS: BP 140/80
== END 2023-02-26 17:04 | disposition home or self-care (01) ==
PROVIDERS: Visit Provider Internal Medicine
DX: Z00.00 Encounter for general adult medical examination without abnormal findings (principal); E11.65 Type 2 diabetes mellitus with hyperglycemia; F31.62 Bipolar disorder, current episode mixed, moderate; Z98.84 Bariatric surgery status; I10 Essential (primary) hypertension; E78.00 Pure hypercholesterolemia, unspecified; K21.9 Gastro-esophageal reflux disease without esophagitis; Z12.31 Encounter for screening mammogram for malignant neoplasm of breast; Z72.0 Tobacco use
CPT/HCPCS: 83036; 99396

== ENCOUNTER → 2023-04-28 12:43 | Outpatient (AMB) | payer OTHER, SELFPAY ==
[2023-04-28 12:58] VITALS: BP 122/74; PULSE 94; RESP 13; TEMP 36.3; O2SAT 99; BMI 25.7
--- NOTE | 2023-04-28 12:58 | MHC.OFFWIV ---
Intake Vital Signs 04/28/23 12:58 Height 5 ft 4 in Weight 150 lb BMI 25.7 BP 122/74 Blood Pressure Location Rt brachial Position Sitting Respiration 13 Pulse 94 Pulse Source Pulse Oximeter Temp 97.4 F Temp Source Temporal Artery Scan Pulse Oximetry (%) 99 Oxygen Delivery Method Room Air Intake Visit Reasons: ? Sinus infection Intake Note: Patient has been experiencing nasal congestion, chest congestion and productive coughing x3 days. Patient Tobacco Use Status: Former Tobacco user Accompanied by: Self / Same As Patient Allergies amoxicillin Allergy (Severe, Verified 04/28/23 15:27) Hives Sulfacet-R Allergy (Unknown, Uncoded 04/28/23 13:00) Hives Medication List - Last Reconciled 04/28/23 by JUANCARLOS Garcia bisacodyl (Dulcolax (bisacodyl)) 20 mg (4 x 5 mg) PO ONCE 1 day blood sugar diagnostic (FreeStyle Lite Strips) As directed check the BS QD blood-glucose meter (FreeStyle Lite Meter kit) As directed bupropion HCl (Wellbutrin SR) 100 mg PO TID cholecalciferol (vitamin D3) 50 mcg PO DAILY lamotrigine 200 mg PO BID lancets (FreeStyle Lancets) As directed check BS QD liraglutide (weight loss) (Saxenda) inject subcutaneously once daily: week 1 = 0.6 mg; week 2 = 1.2 mg; week 3 = 1.8 mg; week 4 = 2.4 mg; then 3 mg daily subcut meclizine 25 mg PO BID PRN 1 week metformin 1,000 mg PO BID multivitamin (Daily-Emelyn tablet) 1 tab PO DAILY pantoprazole 40 mg PO DAILY 90 days polyethylene glycol 3350 (Miralax) 238 grams PO ONCE zolpidem (Ambien) 10 mg PO BEDTIME PRN Do you need a note to return to daycare/school/sports/work: No HPI HPI Comments History of Present Illness Details here today with URI sx started 3 days ago chest congestion, body aches, sinus headache prod cough and nasal drainage no at home treatments other than APAP Did get flu shot this season PFSH Medical History (Updated 04/28/23 @ 15:34 by JUANCARLOS Garcia) Breast cancer screening by mammogram Colon cancer screening Screening for hypothyroidism Left otitis media ZHAO I (cervical intraepithelial neoplasia I) Irritable bowel syndrome Urinary incontinence Allergic rhinitis Insomnia Vitamin D deficiency Bipolar disorder Hypercholesterolemia Hypertension Carpal tunnel syndrome Type 2 diabetes mellitus with hyperglycemia Surgical History H/O tubal ligation H/O: hysterectomy Gastric bypass status for obesity Family History (Updated 02/26/23 @ 16:42 by Althea Singer MD) Father Heart attack Maternal Uncle Lung cancer Maternal Aunt Colon cancer Social History (Updated 02/26/23 @ 16:43 by Althea Singer MD) Housing: House Alcohol intake: never Patient Tobacco Use Status: Former Tobacco user Tobacco use type: Cigarette Years Smoked: last seen (01/2023) still smoking e-Cigarette/Vaping Use: Never Used service: No Current occupational status: employed Cognitive needs: No Hearing needs: No Vision needs: No Review of Systems Const All systems reviewed & are unremarkable except as noted in HPI and below Physical Exam Vital Signs: Last Vital Signs Temp 97.4 F 04/28/23 12:58 Pulse 94 04/28/23 12:58 Resp 13 04/28/23 12:58 BP 122/74 04/28/23 12:58 Pulse Ox 99 04/28/23 12:58 Oxygen Delivery Method Room Air 04/28/23 12:58 BMI result Body Mass Index 25.7 Const Other: Awake alert NAD Sclera and conjunctiva clear bilat TM intact with mucoid effusions bilat worse on the left Nares with mucoid discharge, turbinates pale, frontal and maxillary sinus tenderness with palpation MMM, pharynx positive postnasal drip RRR LS CTAB Assessment & Plan Assessment & Plan (1) Acute bacterial sinusitis: Code(s): J01.90 - Acute sinusitis, unspecified; B96.89 - Other specified bacterial agents as the cause of diseases classified elsewhere Plan: . Medications: New benzonatate 100 mg PO TID 10 days PRN 30 caps 1RF cough azithromycin For 250 mg dose pack: take 500 mg today (day 1), then 250 mg for 4 days (days 2-5) PO 5 days 6 tabs 0RF Coding Level of Care Code Est Pt Level 3 (51985) Diagnoses Acute bacterial sinusitis J01.90; B96.89
== END ==
PROVIDERS: PCP Internal Medicine; Visit Provider Nurse Practitioner Family
DX: J01.90 Acute sinusitis, unspecified (principal); B96.89 Other specified bacterial agents as the cause of diseases classified elsewhere
CPT/HCPCS: 99213

== ENCOUNTER 2023-04-30 09:31 | Outpatient (AMB) | payer OTHER, SELFPAY ==
[2023-04-30 09:34] VITALS: BP 120/72; PULSE 82; RESP 15; BMI 25.8
--- NOTE | 2023-04-30 09:34 | MHC.PC.OV ---
Vital Signs 04/30/23 09:34 Height 5 ft 4 in Weight 150 lb 2 oz BMI 25.8 BP 120/72 Blood Pressure Location Lt brachial Position Sitting Respiration 15 Pulse 82 Pulse Source Palpation Intake Visit Reasons: ? bronchitis Intake Note: Dr. Singer's patient is currently being treated for bilateral ear infection and sinus infection using azithromycin. However, the patient reports that the prescribed medication does not appear to alleviate the symptoms. Today, the patient is particularly concerned about chest congestion and has experienced productive coughing for the past 4-5 days. 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 Accompanied by: Self / Same As Patient Allergies Sulfacet-R Allergy (Intermediate, Uncoded 04/30/23 09:45) Hives Medication List - Last Reconciled 04/30/23 by Mohsen Diaz PA-C azithromycin For 250 mg dose pack: take 500 mg today (day 1), then 250 mg for 4 days (days 2-5) PO 5 days bisacodyl (Dulcolax (bisacodyl)) 20 mg (4 x 5 mg) PO ONCE 1 day blood sugar diagnostic (FreeStyle Lite Strips) As directed check the BS QD blood-glucose meter (FreeStyle Lite Meter kit) As directed bupropion HCl (Wellbutrin SR) 100 mg PO TID cholecalciferol (vitamin D3) 50 mcg PO DAILY lamotrigine 200 mg PO BID lancets (FreeStyle Lancets) As directed check BS QD liraglutide (weight loss) (Saxenda) inject subcutaneously once daily: week 1 = 0.6 mg; week 2 = 1.2 mg; week 3 = 1.8 mg; week 4 = 2.4 mg; then 3 mg daily subcut meclizine 25 mg PO BID PRN 1 week metformin 1,000 mg PO BID multivitamin (Daily-Emelyn tablet) 1 tab PO DAILY pantoprazole 40 mg PO DAILY 90 days polyethylene glycol 3350 (Miralax) 238 grams PO ONCE zolpidem (Ambien) 10 mg PO BEDTIME PRN Tobacco use date assessed: 04/30/23 Dental Screening Dental Screen Date: 04/30/23 Did you have a dental visit in the last 12 months?: No Did you have a dental problem in the last 6 months where you did not have access to dental care?: No Was dental information given to patient?: Patient has dentist HPI ? bronchitis HPI Details Patient is a 52-year-old female here today for problem visit. Patient has been experiencing sinus congestion, runny nose and cough over the last week. Was seen at walk-in clinic and was diagnosed with a sinus infection was started on azithromycin. She reports she still has a cough and some congestion feeling in her ears. [facility] Medical History (Updated 04/30/23 @ 09:48 by Mohsen Diaz PA-C) Breast cancer screening by mammogram Colon cancer screening Screening for hypothyroidism Left otitis media ZHAO I (cervical intraepithelial neoplasia I) Irritable bowel syndrome Urinary incontinence Allergic rhinitis Insomnia Vitamin D deficiency Bipolar disorder Hypercholesterolemia Hypertension Carpal tunnel syndrome Type 2 diabetes mellitus with hyperglycemia Surgical History H/O tubal ligation H/O: hysterectomy Gastric bypass status for obesity Family History Father Heart attack Maternal Uncle Lung cancer Maternal Aunt Colon cancer Social History Housing: House Alcohol intake: never Patient Tobacco Use Status: Former Tobacco user Tobacco use type: Cigarette Years Smoked: last seen (01/2023) still smoking e-Cigarette/Vaping Use: Never Used service: No Current occupational status: employed Cognitive needs: No Hearing needs: No Vision needs: No Questionnaire PHQ-9 Over the last 2 weeks, how often have you been bothered by any of the following problems? 1. Little interest or pleasure in doing things: not at all 2. Feeling down, depressed, or hopeless: not at all 3. Trouble falling or staying asleep, or sleeping too much: not at all 4. Feeling tired or having little energy: not at all 5. Poor appetite or overeating: not at all 6. Feeling bad about yourself - or that you are a failure or have let yourself or your family down: not at all 7. Trouble concentrating on things, such as reading the newspaper or watching television: not at all 8. Moving or speaking so slowly that other people could have noticed. Or the opposite - being so fidgety or restless that you have been moving around a lot more than usual: not at all 9. Thoughts that you would be better off or of hurting yourself in some way: not at all Total score: 0 Depression Screening Interpretation: Negative Depression Screening Done: Yes 95983 - PHQ-9 Billing: Yes Source: Developed by Drs. Rony Salmon, Sabina Lua, Eduardo Naylor and colleagues, with an educational dannielle from [employer]. Thrive Questionnaire Date Thrive assessed: 04/30/23 YANNA-7 AMB Questionnaire YANNA-7 Date YANNA - 7 assessed: 05/26/22 Source: Developed by Drs. Rony Salmon, Sabina Lua, Eduardo Naylor and colleagues, with an educational dannielle from [employer]. Review of Systems Const Denies headache(s) Eyes Denies loss of vision ENT Denies vertigo, Denies dizziness, Denies headache(s) and Denies sore throat Card Denies chest pain, Denies leg edema and Denies lightheadedness Resp Denies cough, Denies hemoptysis and Denies wheezing GI Denies abdominal pain, Denies melena, Denies constipation, Denies diarrhea and Denies vomiting Denies urinary frequency, Denies dysuria and Denies urinary urgency Musc Denies arthralgias, Denies joint swelling, Denies numbness and Denies tingling Neuro Denies Abnormal speech present, Denies behavioral changes, Denies vertigo, Denies dizziness, Denies headache(s), Denies loss of vision, Denies memory loss, Denies numbness and Denies tingling Psych Denies anxiety, Denies behavioral changes, Denies depression, Denies memory loss and Denies panic attacks Gil/Lymph Denies easy bleeding and Denies easy bruising Aller/Immun Denies wheezing Physical exam (Primary Care) Vital Signs: Last Vital Signs Pulse 82 04/30/23 09:34 Resp 15 04/30/23 09:34 BP 120/72 04/30/23 09:34 BMI result Body Mass Index 25.8 Tobacco/Smoking Status: Tobacco use Status Tobacco use date assessed 04/30/23 04/30/23 09:45 Patient Tobacco Use Status Former Tobacco user 04/30/23 09:34 Tobacco use type Cigarette 04/30/23 09:34 e-Cigarette/Vaping Use Never Used 04/30/23 09:34 PHQ-9: PHQ-9 Score PHQ-9: Total score 0 04/30/23 09:49 Depression Screening Interpretation: Negative Thrive Assessment: Date of Thrive Assessment Date Thrive assessed 04/30/23 04/30/23 09:39 Const General: healthy appearing, no acute distress, alert and awake Nutritional Appearance: well nourished Orientation/consciousness: oriented to person, oriented to place and oriented to time HENMT Ears: TM's normal bilaterally General nose exam: Normal nasal mucous membranes and turbinates present Eyes Conjunctivae: conjunctivae normal Sclerae: sclerae normal Pupils: Equal, round and reactive pupils present Neck Neck: Yes no lymphadenopathy and Yes no JVD Thyroid: Thyroid normal Carotids: no bruits Resp Effort & Inspection: normal respiratory effort and not tachypneic Auscultation: no crackles, no rales, no rhonchi and no wheezes Cardio Rate: regular rate Rhythm: regular rhythm Heart sounds: no murmurs and normal S1 and S2 GI Palpation (GI): Soft to palpation, nontender, no hepatomegaly and no splenomegaly Auscultation: normal bowel sounds Skin General skin exam: no rashes or lesions noted and dry skin Neuro General: oriented to person, oriented to place and oriented to time Cranial nerves: Yes Equal, round and reactive pupils present Speech: No Abnormal speech present Gait exam (Neuro): Normal gait present Motor exam (neuro): no tremor noted Extrem Right upper extremity: full ROM Left upper extremity: full ROM Right lower extremity: full ROM; no edema Left lower extremity: full ROM; no edema Psych Mental Status: mental status grossly normal Speech and movement: Normal speech and movement present Affect: normal affect Attitude: cooperative Thought process: Normal thought process present Assessment and Plan Assessment & Plan (1) Acute bacterial bronchitis: Code(s): J20.8 - Acute bronchitis due to other specified organisms; B96.89 - Other specified bacterial agents as the cause of diseases classified elsewhere Plan: Patient has signs symptoms of upper respiratory infection. Azithromycin has been ineffective for her. Will supply prednisone taper and amoxicillin. Will send for x-ray to rule out a pulmonary infiltrate. Orders: Orders XR chest 2V Today B96.89 - Other specified bacterial agents as the cause of diseases classified elsewhere, J20.8 - Acute bronchitis due to other specified organisms Medications: New amoxicillin-pot clavulanate 875-125 mg 1 tab PO BID 5 days 10 tabs 0RF B96.89 - Other specified bacterial agents as the cause of diseases classified elsewhere, J20.8 - Acute bronchitis due to other specified organisms prednisone Take 3 tablets x2 days, 2 tablets x2 days, 1 tablet x2 days 10 mg PO DIRECTED 6 days 12 tabs 0RF B96.89 - Other specified bacterial agents as the cause of diseases classified elsewhere, J20.8 - Acute bronchitis due to other specified organisms Discontinued azithromycin Discontinued Reason: Doctor's Order For 250 mg dose pack: take 500 mg today (day 1), then 250 mg for 4 days (days 2-5) PO 5 days 6 tabs 0RF Coding Level of Care Code Est Pt Level 3 (57368) Diagnoses Acute bacterial bronchitis J20.8; B96.89
== END 2023-04-30 09:54 | disposition home or self-care (01) ==
PROVIDERS: PCP Internal Medicine; Visit Provider Physician Assistant
DX: J20.8 Acute bronchitis due to other specified organisms (principal); B96.89 Other specified bacterial agents as the cause of diseases classified elsewhere
CPT/HCPCS: 99213

== ENCOUNTER 2023-04-30 10:18 | Outpatient (REF) | payer OTHER, SELFPAY ==
--- NOTE | ~2023-04-30 | XR_ITS ---
EXAMINATION: XR CHEST CLINICAL INFORMATION: Acute bronchitis due to other specified organisms. Rule out pulmonary infiltrate. COMPARISON: PA view of the chest with ribs of 10/15/2017. Chest radiographs of 04/04/2016. TECHNIQUE: 2 views of the chest were obtained. FINDINGS: Redemonstration of surgical clips at the esophagogastric junction. There is no gross pneumothorax. Heart size is normal. No pleural effusion. No focal consolidation to suggest pneumonia. Degenerative changes in the thoracic spine. XR/XR chest 2V IMPRESSION: No evidence of pneumonia.
== END 2023-04-30 10:19 | disposition home or self-care (01) ==
LOC: HO.XRAY 10:18
PROVIDERS: Visit Provider Physician Assistant
DX: J20.8 Acute bronchitis due to other specified organisms (principal); B96.89 Other specified bacterial agents as the cause of diseases classified elsewhere
CPT/HCPCS: 71046

== ENCOUNTER 2023-09-25 15:26 | Outpatient (AMB) | payer OTHER, SELFPAY ==
[2023-09-25 15:32] VITALS: BP 110/68; PULSE 85; O2SAT 98; BMI 24.7
--- NOTE | 2023-09-25 15:32 | A.OFFPC_ITS ---
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 Accompanied by: Self / Same As Patient Allergies Sulfacet-R Allergy (Intermediate, Uncoded 09/25/23 15:33) Hives Medication List - Last Reconciled 09/25/23 by Althea Singer MD amoxicillin-pot clavulanate 875-125 mg 1 tab PO BID 5 days bisacodyl (Dulcolax (bisacodyl)) 20 mg (4 x 5 mg) PO ONCE 1 day blood sugar diagnostic (FreeStyle Lite Strips) As directed check the BS QD blood-glucose meter (FreeStyle Lite Meter kit) As directed bupropion HCl SR (Wellbutrin SR) 100 mg PO TID cholecalciferol (vitamin D3) 50 mcg PO DAILY lamotrigine 200 mg PO BID lancets (FreeStyle Lancets) As directed check BS QD meclizine 25 mg PO BID PRN 1 week melatonin 10 mg PO BEDTIME PRN metformin 1,000 mg PO BID multivitamin (Daily-Emelyn tablet) 1 tab PO DAILY pantoprazole 40 mg PO DAILY 90 days polyethylene glycol 3350 (Miralax) 238 grams PO ONCE semaglutide (Ozempic) 0.25 mg (0.368 mL) subcut QWEEK Tobacco use date assessed: 04/30/23 Dental Screening Dental Screen Date: 04/30/23 HPI DM- NEEDS A1C HPI Details 52-year-old female smoker with a history of gastric bypass diabetes mellitus hypertension hypercholesterolemia bipolar disorder GERD last seen for physical exam in January 2023 patient is here for follow-up. Patient is due for mammogram and colonoscopy(schedule for November). Patient was seen by the nurse practitioner in April 2023 for bronchitis treated with Augmentin and prednisone. But 2 days before seen in the Urgent Center was given Zithromax for sinus problem patient has not been able to get the Saxenda. Patient was on Trulicity before but again was not able to get it. Wants prescription for Ozempic. Otherwise no nausea no vomiting just moved to a new house and has been tired and stressed out. Discussed the need for blood work, mammogram. Does have a schedule for colonoscopy. [facility] Medical History (Updated 09/25/23 @ 15:37 by Althea Singer MD) Acute bacterial sinusitis Acute bacterial bronchitis Breast cancer screening by mammogram Colon cancer screening Screening for hypothyroidism Left otitis media ZHAO I (cervical intraepithelial neoplasia I) Irritable bowel syndrome Urinary incontinence Allergic rhinitis Insomnia Vitamin D deficiency Bipolar disorder Hypercholesterolemia Hypertension Carpal tunnel syndrome Type 2 diabetes mellitus with hyperglycemia Surgical History H/O tubal ligation H/O: hysterectomy Gastric bypass status for obesity Family History Father Heart attack Maternal Uncle Lung cancer Maternal Aunt Colon cancer Social History Housing: House Alcohol intake: never Patient Tobacco Use Status: Former Tobacco user Tobacco use type: Cigarette Years Smoked: last seen (01/2023) still smoking e-Cigarette/Vaping Use: Never Used service: No Current occupational status: employed Cognitive needs: No Hearing needs: No Vision needs: No Questionnaire Thrive Questionnaire Date Thrive assessed: 04/30/23 YANNA-7 AMB Questionnaire YANNA-7 Date YANNA - 7 assessed: 05/26/22 Source: Developed by Drs. Rony Salmon, Sabina Lua, Eduardo Naylor and colleagues, with an educational dannielle from [employer] Physical exam (Primary Care) Vital Signs: Last Vital Signs Pulse 85 09/25/23 15:32 BP 110/68 09/25/23 15:32 Pulse Ox 98 09/25/23 15:32 Oxygen Delivery Method Room Air 09/25/23 15:32 BMI result Body Mass Index 24.7 Tobacco/Smoking Status: Tobacco use Status Tobacco use date assessed 04/30/23 09/25/23 15:33 Patient Tobacco Use Status Former Tobacco user 09/25/23 15:33 Tobacco use type Cigarette 09/25/23 15:33 e-Cigarette/Vaping Use Never Used 09/25/23 15:33 Thrive Assessment: Date of Thrive Assessment Date Thrive assessed 04/30/23 09/25/23 15:33 Const General: alert; No acute distress Eyes Conjunctivae: conjunctivae normal Resp Auscultation: clear to auscultation bilaterally Cardio Rate: regular rate Rhythm: regular rhythm GI Inspection: Yes normal to inspection Extrem General: Yes normal to inspection and No edema Results AMB Hemoglobin A1c AMB Hemoglobin A1c 8.0 % Last Edit by CRISTIAN Hurley on 09/25/23 15:48 Assessment and Plan Assessment & Plan (1) Type 2 diabetes mellitus with hyperglycemia: Code(s): E11.65 - Type 2 diabetes mellitus with hyperglycemia Qualifiers: Diabetes mellitus chcf insulin use: without intermodal dispatcher use Qualified Code(s): E11.65 - Type 2 diabetes mellitus with hyperglycemia Plan: Decrease the amount of carbohydrate intake, pasta, bread, rice and potatoes are all sugar and that is aside from all the sweet stuff, remember that fruits are good but they are Sweet also. Hemoglobin A1c goal of less than 6.5. Patient was prescribed Saxenda but was not able to get this. On metformin a 1000 mg twice a day prescription for Ozempic sent in. Hemoglobin A1c was 8.0 (2) Tobacco abuse: Code(s): Z72.0 - Tobacco use Plan: Patient is strongly advised to stop smoking! (3) Breast cancer screening by mammogram: Code(s): Z12.31 - Encounter for screening mammogram for malignant neoplasm of breast Plan: Patient is reminded about mammogram (4) Gastric bypass status for obesity: Comment: Laparoscopic [facility] Dr. Holliday April 2016 Code(s): Z98.84 - Bariatric surgery status Plan: Continue to follow-up with bariatric surgeon (5) GERD (gastroesophageal reflux disease): Code(s): K21.9 - Gastro-esophageal reflux disease without esophagitis Qualifiers: Esophagitis presence: esophagitis presence not specified Qualified Code(s): K21.9 - Gastro-esophageal reflux disease without esophagitis Plan: Avoid the foods that causes that usually spicy foods, tomato products, juices, coffee, soda and foods that your sensitive to. After eating do not lie down, allow 3-4 hours before in lie down. And keep the head of bed above 30 degrees to avoid the acid from going up. (6) Hypercholesterolemia: Code(s): E78.00 - Pure hypercholesterolemia, unspecified Plan: Avoid fried foods, chicken skin, eggs, butter margarine, pastries and meat. Be it pork or beef they have a lot of cholesterol LDL goal of less than 100 and triglyceride of less than 150 patient needs to get blood work (7) Bipolar disorder: Comment: Yonas Salvador Code(s): F31.9 - Bipolar disorder, unspecified Qualifiers: Active/Remission status: currently active Current bipolar episode type: mixed Current episode severity: moderate Qualified Code(s): F31.62 - Bipolar disorder, current episode mixed, moderate Plan: Continue with counseling and therapy Orders: Orders AMB Hemoglobin A1c Today E11.65 - Type 2 diabetes mellitus with hyperglycemia Referrals Ophthalmology Referral E11.65 - Type 2 diabetes mellitus with hyperglycemia Medications: New melatonin 10 mg PO BEDTIME PRN 30 caps 0RF sleep E11.65 - Type 2 diabetes mellitus with hyperglycemia semaglutide (Ozempic) for 4 weeks 0.25 mg (0.368 mL) subcut QWEEK 3 mL 2RF E11.65 - Type 2 diabetes mellitus with hyperglycemia Discontinued liraglutide (weight loss) (Saxenda) Discontinued Reason: Doctor's Order inject subcutaneously once daily: week 1 = 0.6 mg; week 2 = 1.2 mg; week 3 = 1.8 mg; week 4 = 2.4 mg; then 3 mg daily subcut 15 mL 0RF E11.65 - Type 2 diabetes mellitus with hyperglycemia prednisone Take 3 tablets x2 days, 2 tablets x2 days, 1 tablet x2 days Discontinued Reason: Patient Completed Course 10 mg PO DIRECTED 6 days 12 tabs 0RF B96.89 - Other specified bacterial agents as the cause of diseases classified elsewhere, J20.8 - Acute bronchitis due to other specified organisms Coding Level of Care Code Est Pt Level 4 (95950) Diagnoses Type 2 diabetes mellitus with hyperglycemia, without long-term current use of insulin E11.65 Diabetes mellitus chcf insulin use: without chcf use Tobacco abuse Z72.0 Breast cancer screening by mammogram Z12.31 Gastric bypass status for obesity Z98.84 Gastroesophageal reflux disease, unspecified whether esophagitis present K21.9 Esophagitis presence: esophagitis presence not specified Hypercholesterolemia E78.00 Bipolar disorder, current episode mixed, moderate F31.62 Active/Remission status: currently active Current bipolar episode type: mixed Current episode severity: moderate
== END 2023-09-25 15:56 | disposition home or self-care (01) ==
PROVIDERS: PCP Internal Medicine; Visit Provider Internal Medicine
DX: E11.65 Type 2 diabetes mellitus with hyperglycemia (principal); Z72.0 Tobacco use; K21.9 Gastro-esophageal reflux disease without esophagitis; F31.62 Bipolar disorder, current episode mixed, moderate; E78.00 Pure hypercholesterolemia, unspecified
CPT/HCPCS: 83036; 99214

== ENCOUNTER 2023-10-07 17:09 | Outpatient (AMB) | payer OTHER, SELFPAY ==
--- NOTE | 2023-10-07 17:22 | MHC.PC.OV ---
Vital Signs 10/07/23 17:24 Height 5 ft 4 in Weight 148 lb BMI 25.4 BP 130/76 Blood Pressure Location Lt brachial Position Sitting Intake Visit Reasons: Left knee swelling, redness, pus Oil And Gas Principal Required: No Accompanied by: Self / Same As Patient Allergies Sulfacet-R Allergy (Intermediate, Uncoded 10/07/23 17:35) Hives Medication List - Last Reconciled 10/07/23 by Kandace Mg MD bisacodyl (Dulcolax (bisacodyl)) 20 mg (4 x 5 mg) PO ONCE 1 day blood sugar diagnostic (FreeStyle Lite Strips) As directed check the BS QD blood-glucose meter (FreeStyle Lite Meter kit) As directed bupropion HCl SR (Wellbutrin SR) 100 mg PO TID cholecalciferol (vitamin D3) 50 mcg PO DAILY lamotrigine 200 mg PO BID lancets (FreeStyle Lancets) As directed check BS QD meclizine 25 mg PO BID PRN 1 week melatonin 10 mg PO BEDTIME PRN metformin 1,000 mg PO BID multivitamin (Daily-Emelyn tablet) 1 tab PO DAILY pantoprazole 40 mg PO DAILY 90 days polyethylene glycol 3350 (Miralax) 238 grams PO ONCE semaglutide (Ozempic) 0.25 mg (0.368 mL) subcut QWEEK Tobacco use date assessed: 04/30/23 Dental Screening Dental Screen Date: 04/30/23 HPI HPI Comments History of Present Illness Details This is a 52-year-old female with diabetes mellitus type 2, bipolar disorder, and GERD that comes today for a left leg wound that happened when she fell while cleaning and took a wrong step. She is using triple antibiotic ointment but the wound has not decrease in size. It does not have any secretions. Has erythema around it very mild. It is not warm to touch. Will start her on antibiotics. Last A1c was elevated and Ozempic was prescribed but it was not covered by insurance. On Lamictal for bipolar disorder. On PPIs for her GERD. [facility] Medical History (Updated 10/07/23 @ 19:23 by Kandace Mg MD) Acute bacterial sinusitis Acute bacterial bronchitis Breast cancer screening by mammogram Colon cancer screening Screening for hypothyroidism Left otitis media ZHAO I (cervical intraepithelial neoplasia I) Irritable bowel syndrome Urinary incontinence Allergic rhinitis Insomnia Vitamin D deficiency Bipolar disorder Hypercholesterolemia Hypertension Carpal tunnel syndrome Type 2 diabetes mellitus with hyperglycemia Surgical History H/O tubal ligation H/O: hysterectomy Gastric bypass status for obesity Family History Father Heart attack Maternal Uncle Lung cancer Maternal Aunt Colon cancer Social History Housing: House Alcohol intake: never Patient Tobacco Use Status: Former Tobacco user Tobacco use type: Cigarette Years Smoked: last seen (01/2023) still smoking e-Cigarette/Vaping Use: Never Used service: No Current occupational status: employed Cognitive needs: No Hearing needs: No Vision needs: No Questionnaire Thrive Questionnaire Date Thrive assessed: 04/30/23 YANNA-7 AMB Questionnaire YANNA-7 Date YANNA - 7 assessed: 05/26/22 Source: Developed by Drs. Rony Salmon, Sabina Lua, Eduardo Naylor and colleagues, with an educational dannielle from [employer]. Review of Systems Const All systems reviewed & are unremarkable except as noted in HPI and below Card Denies chest pain at rest, Denies chest pain with activity, Denies edema, Denies irregular heart rhythm, Denies claudication, Denies dyspnea, Denies dyspnea on exertion, Denies orthopnea, Denies paroxysmal nocturnal dyspnea and Denies slow heart rate Resp Denies cough, Denies dyspnea and Denies dyspnea on exertion GI Denies abdominal pain, Denies change in bowel habits, Denies excessive flatus, Denies nausea and Denies vomiting Denies urinary incontinence, Denies urinary hesitancy and Denies urinary urgency Skin/Breast Reports lesions Physical exam (Primary Care) Vital Signs: Last Vital Signs BP 130/76 10/07/23 17:24 BMI result Body Mass Index 25.4 Tobacco/Smoking Status: Tobacco use Status Tobacco use date assessed 04/30/23 10/07/23 17:24 Patient Tobacco Use Status Former Tobacco user 10/07/23 17:24 Tobacco use type Cigarette 10/07/23 17:24 e-Cigarette/Vaping Use Never Used 10/07/23 17:24 Thrive Assessment: Date of Thrive Assessment Date Thrive assessed 04/30/23 10/07/23 17:24 Resp Effort & Inspection: normal respiratory effort Auscultation: clear to auscultation bilaterally Cardio Jugular venous distension: no JVD Rate: regular rate Rhythm: regular rhythm Heart sounds: S1 normal heart sound present and S2 normal heart sound present Skin Lesions: lesion noted (left leg wound with no secretions and erythema around it) Extrem General: Yes full ROM Assessment and Plan Assessment & Plan (1) Wound of left leg: Code(s): S81.802A - Unspecified open wound, left lower leg, initial encounter Qualifiers: Encounter type: initial encounter Qualified Code(s): S81.802A - Unspecified open wound, left lower leg, initial encounter Plan: Start Bactrim ds. (2) Bipolar disorder: Comment: Yonas Salvador Code(s): F31.9 - Bipolar disorder, unspecified Qualifiers: Active/Remission status: currently active Current bipolar episode type: mixed Current episode severity: moderate Qualified Code(s): F31.62 - Bipolar disorder, current episode mixed, moderate Plan: Continue Lamictal. 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 A1c goal is equal or less than 7%. (4) GERD (gastroesophageal reflux disease): Code(s): K21.9 - Gastro-esophageal reflux disease without esophagitis Qualifiers: Esophagitis presence: esophagitis presence not specified Qualified Code(s): K21.9 - Gastro-esophageal reflux disease without esophagitis Plan: Continue PPIs. Medications: New sulfamethoxazole-trimethoprim 800-160 mg (Bactrim DS) 1 tab PO BID 14 tabs 0RF 7 days Coding Level of Care Code Est Pt Level 4 (55335) Complex EM visit Add On G2211 Diagnoses Wound of left lower extremity, initial encounter S81.802A Encounter type: initial encounter Bipolar disorder, current episode mixed, moderate F31.62 Active/Remission status: currently active Current bipolar episode type: mixed Current episode severity: moderate Type 2 diabetes mellitus with hyperglycemia, without long-term current use of insulin E11.65 Diabetes mellitus residential insulin use: without residential use Gastroesophageal reflux disease, unspecified whether esophagitis present K21.9 Esophagitis presence: esophagitis presence not specified Time Spent (min) 21
[2023-10-07 17:24] VITALS: BP 130/76; BMI 25.4
== END 2023-10-07 17:47 | disposition home or self-care (01) ==
PROVIDERS: PCP Internal Medicine; Visit Provider Internal Medicine
DX: S81.802A Unspecified open wound, left lower leg, initial encounter (principal); F31.62 Bipolar disorder, current episode mixed, moderate; E11.65 Type 2 diabetes mellitus with hyperglycemia; K21.9 Gastro-esophageal reflux disease without esophagitis
CPT/HCPCS: 99214; G2211

== ENCOUNTER 2023-10-24 18:43 | Emergency (ER) | payer OTHER, SELFPAY ==
--- NOTE | ~2023-10-24 | XR_ITS ---
EXAMINATION: XR HAND, RIGHT CLINICAL INFORMATION: Pain, trauma COMPARISON: None available. TECHNIQUE: PA, lateral, and oblique views of the right hand. FINDINGS: The bones and soft tissues are normal. No fracture. Alignment is anatomic. Joint spaces are maintained. No erosions or soft tissue calcifications. XR/XR hand RT min 3V IMPRESSION: Normal right hand. Electronically signed by: Ishan Werner DO 10/24/2023 09:38 PM EDT
--- NOTE | ~2023-10-24 | XR_ITS ---
EXAMINATION: XR HIP, RIGHT CLINICAL INFORMATION: Pain, trauma COMPARISON: None available. TECHNIQUE: Two views of the right hip. FINDINGS: No fracture. Alignment is anatomic. Right hip osteoarthritis. Soft tissues are unremarkable. XR/XR hip RT w PEL1V IMPRESSION: Right hip osteoarthritis. Electronically signed by: Ishan Werner DO 10/24/2023 09:39 PM EDT
--- NOTE | ~2023-10-24 | XR_ITS ---
EXAMINATION: XR LUMBOSACRAL SPINE CLINICAL INFORMATION: Pain, trauma COMPARISON: None available. TECHNIQUE: Three views of the lumbosacral spine. FINDINGS: The vertebral bodies and posterior elements are normal. Mild multilevel degenerative changes. Vertebral alignment is normal. The paraspinal soft tissues are normal. XR/XR lumbar spine 2-3V IMPRESSION: Unremarkable examination. Electronically signed by: Ishan Werner DO 10/24/2023 09:41 PM EDT
[2023-10-24 19:08] VITALS: BP 154/88; PULSE 91; RESP 20; TEMP 37.2; O2SAT 97; BMI 25.4
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
[2023-10-24 22:14] VITALS: BP 154/88; PULSE 91; RESP 20; TEMP 37.2; O2SAT 97
== END 2023-10-24 22:14 | disposition home or self-care (01) ==
PROVIDERS: Emergency Provider Emergency Medicine Emergency Medical Services; PCP Internal Medicine
DX: S39.012A Strain of muscle, fascia and tendon of lower back, initial encounter (principal); S70.01XA Contusion of right hip, initial encounter; S60.221A Contusion of right hand, initial encounter; S60.211A Contusion of right wrist, initial encounter; V43.52XA Car driver injured in collision with other type car in traffic accident, initial encounter; Y93.89 Activity, other specified; Y92.410 Unspecified street and highway as the place of occurrence of the external cause; Y99.9 Unspecified external cause status
CPT/HCPCS: 72100; 73130; 73502; 99282; 99283

== ENCOUNTER 2023-10-28 09:40 | Outpatient (AMB) | payer OTHER, SELFPAY ==
[2023-10-28 09:47] VITALS: BP 122/68; PULSE 81; O2SAT 98; BMI 25.1
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
== END 2023-10-28 10:20 | disposition home or self-care (01) ==
PROVIDERS: PCP Internal Medicine; Visit Provider Internal Medicine
DX: M25.551 Pain in right hip (principal); M25.531 Pain in right wrist; V89.2XXA Person injured in unspecified motor-vehicle accident, traffic, initial encounter; Z04.3 Encounter for examination and observation following other accident
CPT/HCPCS: 99213

== ENCOUNTER 2023-11-24 11:43 | Outpatient (REF) | payer OTHER, SELFPAY ==
[2023-11-24 14:09] LABS: Influenza A PCR NEGATIVE (Negative); Influenza B PCR NEGATIVE (Negative); Resp Syncy Virus RNA Qual PCR NEGATIVE (Negative); SARS COV2 PCR INHOUSE NEGATIVE (Negative)
== END 2023-11-24 11:44 | disposition home or self-care (01) ==
LOC: HO.LAB 11:43
PROVIDERS: PCP Internal Medicine; Visit Provider Physician Assistant
DX: J06.9 Acute upper respiratory infection, unspecified (principal)
CPT/HCPCS: 0241U

== ENCOUNTER 2023-11-24 11:43 | Outpatient (AMB) | payer OTHER, SELFPAY ==
[2023-11-24 11:53] VITALS: BP 110/76; PULSE 84; TEMP 36.8; O2SAT 98; BMI 25.6
--- NOTE | 2023-11-24 11:53 | MHC.OFFWIV ---
Intake Vital Signs 11/24/23 11:53 Height 5 ft 4 in Weight 149 lb BMI 25.6 BP 110/76 Blood Pressure Location Lt brachial Position Sitting Pulse 84 Pulse Source Pulse Oximeter Temp 98.2 F Temp Source Oral Pulse Oximetry (%) 98 Oxygen Delivery Method Room Air Intake Visit Reasons: Sinus ? Intake Note: pt c/o sinus pressure and ear pain. Started 8 days ago Patient Tobacco Use Status: Former Tobacco user Allergies Sulfacet-R Allergy (Intermediate, Uncoded 11/24/23 11:58) Hives Do you need a note to return to daycare/school/sports/work: Yes HPI HPI Comments History of Present Illness Details Patient is a 53-year-old female complaining of 8 days of sinus pressure, left ear pain, a productive cough with green sputum, breathing heavily and with a crackle . She has been using Sudafed, some kind of nasal spray, Zicam, ibuprofen and Tylenol with mild relief but feels like she is not getting any better overall. She did go to an urgent care a week ago but was not given any medications at that time. [facility] Medical History Acute bacterial sinusitis Acute bacterial bronchitis Breast cancer screening by mammogram Colon cancer screening Screening for hypothyroidism Left otitis media ZHAO I (cervical intraepithelial neoplasia I) Irritable bowel syndrome Urinary incontinence Allergic rhinitis Insomnia Vitamin D deficiency Bipolar disorder Hypercholesterolemia Hypertension Carpal tunnel syndrome Type 2 diabetes mellitus with hyperglycemia Surgical History H/O tubal ligation H/O: hysterectomy Gastric bypass status for obesity Family History Father Heart attack Maternal Uncle Lung cancer Maternal Aunt Colon cancer Social History Housing: House Alcohol intake: never Patient Tobacco Use Status: Former Tobacco user Tobacco use type: Cigarette Years Smoked: last seen (01/2023) still smoking e-Cigarette/Vaping Use: Never Used service: No Current occupational status: employed Cognitive needs: No Hearing needs: No Vision needs: No Review of Systems Const All systems reviewed & are unremarkable except as noted in HPI and below Physical Exam Vital Signs: Last Vital Signs Temp 98.2 F 11/24/23 11:53 Pulse 84 11/24/23 11:53 BP 110/76 11/24/23 11:53 Pulse Ox 98 11/24/23 11:53 Oxygen Delivery Method Room Air 11/24/23 11:53 BMI result Body Mass Index 25.6 Const General: cooperative, healthy appearing, comfortable and no acute distress Orientation/consciousness: patient oriented x3 Limitations: no limitations HEENT Head: Yes normal to inspection Ears: hearing grossly normal bilaterally, external ears normal, TM normal on the right and TM abnormal dull, wth effusion and with loss of landmarks General nose exam: Normal external nose present, Normal nares present and No nasal discharge present Face and sinus: Yes normal facial exam and Yes sinuses nontender Mouth: Normal oral and palatal mucosa present and moist mucous membranes Throat: Yes tonsils normal, Yes uvula midline and Yes posterior oropharynx abnormal (Erythema) Eyes General: appearance normal, both eyes and all related structures Neck Neck: Yes normal visual inspection Resp Effort & Inspection: normal respiratory effort, able to speak in complete sentences, Actively coughing, no respiratory distress, not tachypneic, no tripod positioning and no use of accessory muscles Auscultation: clear to auscultation bilaterally Cardio Rate: regular rate Rhythm: regular rhythm Heart sounds: normal S1 and S2 Skin General skin exam: no rashes or lesions noted Neuro General: patient oriented x3 Extrem General: Yes normal to inspection and Yes no clubbing, cyanosis or edema Assessment & Plan Assessment & Plan (1) Otitis media: Code(s): H66.90 - Otitis media, unspecified, unspecified ear Qualifiers: Otitis media type: suppurative Chronicity: acute Laterality: left Recurrence: non-recurrent Spontaneous tympanic membrane rupture: without spontaneous rupture Qualified Code(s): H66.002 - Acute suppurative otitis media without spontaneous rupture of ear drum, left ear Plan: We also tested her for flu COVID and RSV. We will send Augmentin to cover both ear infection and the sinusitis as it is likely bacterial because she is getting worse after 8 days. Also recommended she use a Neti pot with distilled water followed by Flonase and any other [id number] medications to help treat her symptoms. (2) Sinusitis: Code(s): J32.9 - Chronic sinusitis, unspecified Qualifiers: Sinusitis location: maxillary Chronicity: acute Recurrence: non-recurrent Qualified Code(s): J01.00 - Acute maxillary sinusitis, unspecified Plan: See above Plan See above Orders: Orders SARS-CoV2/FLU/RSV Today J06.9 - Acute upper respiratory infection, unspecified Medications: New amoxicillin-pot clavulanate 875-125 mg 1 tab PO Q12H 10 tabs 0RF Coding Level of Care Code Est Pt Level 3 (41294) Diagnoses Non-recurrent acute suppurative otitis media of left ear without spontaneous rupture of tympanic membrane H66.002 Otitis media type: suppurative Chronicity: acute Laterality: left Recurrence: non-recurrent Spontaneous tympanic membrane rupture: without spontaneous rupture Acute non-recurrent maxillary sinusitis J01.00 Sinusitis location: maxillary Chronicity: acute Recurrence: non-recurrent
== END 2023-11-24 12:20 | disposition home or self-care (01) ==
PROVIDERS: PCP Internal Medicine; Visit Provider Physician Assistant
DX: H66.002 Acute suppurative otitis media without spontaneous rupture of ear drum, left ear (principal); J01.00 Acute maxillary sinusitis, unspecified

== ENCOUNTER 2023-11-26 08:04 | Outpatient (REF) | payer OTHER, SELFPAY ==
[2023-11-26 08:15] LABS: MANUAL DIFF FLAG NO
[2023-11-26 08:42] LABS: Basophils Absolute Auto 0.1 X10*3/uL (0.0-0.2); Basophils Percent Auto 0.8 % (0-2); Eosinophils Absolute Auto 0.3 X10*3/uL (0.0-0.4); Eosinophils Percent Auto 3.9 % (0-4); Hematocrit 41.4 % (37.0-47.0); Hemoglobin 13.2 g/dl (12.0-16.0); Imm Gran Abs Auto 0.02 X10*3/uL (0.00-0.03); Imm Gran Pct Auto 0.3 % (0.0-0.4); Lymphocytes Absolute Auto 2.4 X10*3/uL (1.2-4.9); Lymphocytes Percent Auto 32.5 % (20-40); Mean Corpuscular HGB Conc 31.9 g/dl (31.0-35.0); Mean Corpuscular Hemoglobin 24.8 pg (27.0-33.0); Mean Corpuscular Volume 77.7 fL (80.0-98.0); Mean Platelet Volume 9.6 fL (9.4-12.3); Monocytes Absolute Auto 0.6 X10*3/uL (0.1-1.2); Monocytes Percent Auto 8.8 % (2-11); Neutrophils Absolute Auto 3.9 x10*3/uL (2.0-8.3); Neutrophils Percent Auto 53.7 % (45-73); Platelet Count 363 X10*3/uL (160-400); Red Blood Count 5.33 X10*6/uL (4.20-5.50); White Blood Count 7.3 X10*3/uL (4.8-10.8)
[2023-11-26 09:23] LABS: Alanine Aminotransferase 16 U/L (0-31); Albumin Level 4.3 g/dL (3.5-5.0); Alkaline Phosphatase 95 U/L (39-117); Anion Gap 13 (12-20); Aspartate Amino Transferase 16 U/L (5-31); Bilirubin Total 0.3 mg/dL (0.0-1.0); Blood Urea Nitrogen 10 mg/dL (9-16); Calcium 9.9 mg/dL (8.4-10.2); Carbon Dioxide 28 mmol/L (22-29); Chloride 103 mmol/L (96-108); Cholesterol 196 mg/dL (<200); Estimated Glomerular Filt Rate > 60; Glucose Random 219 mg/dL (60-115); HDL Cholesterol 57 mg/dL (>40); LDL Cholesterol Calculated 107 mg/dL (<100); Sodium 140 mmol/L (135-145); Total Protein 7.9 g/dL (6.5-8.0); Triglycerides 164 mg/dL (<150)
[2023-11-26 09:39] LABS: Free T4 (Free Thyroxine) 1.01 ng/dL (0.71-1.85); Vitamin D 25-OH Total 30.3 ng/mL (>30)
[2023-11-26 09:48] LABS: Folate 12.7 ng/mL (> or = 4.0); Vitamin B12 514 pg/mL (200-900)
== END 2023-11-26 08:05 | disposition home or self-care (01) ==
LOC: HO.LAB 08:04
PROVIDERS: PCP Internal Medicine; Visit Provider Internal Medicine
DX: E11.65 Type 2 diabetes mellitus with hyperglycemia (principal); E78.00 Pure hypercholesterolemia, unspecified
CPT/HCPCS: 36415; 80053; 80061; 82043; 82306; 82570; 82607; 82746; 84439; 84443; 85025

== ENCOUNTER 2023-11-27 14:57 | Outpatient (AMB) | payer OTHER, SELFPAY ==
--- NOTE | 2023-11-27 14:59 | MHC.PC.OV ---
Vital Signs 11/27/23 15:02 Height 5 ft 4 in Weight 148 lb BMI 25.4 BP 108/76 Blood Pressure Location Lt brachial Position Sitting Pulse 87 Pulse Source Pulse Oximeter Pulse Oximetry (%) 97 Oxygen Delivery Method Room Air Intake Visit Reasons: lower back pain Concrete Rod Buster Required: No Allergies Sulfacet-R Allergy (Intermediate, Uncoded 11/27/23 15:05) Hives Medication List - Last Reconciled 11/27/23 by Olga Zuñiga PA-C amoxicillin-pot clavulanate 875-125 mg 1 tab PO Q12H bisacodyl (Dulcolax (bisacodyl)) 20 mg (4 x 5 mg) PO ONCE 1 day blood sugar diagnostic (FreeStyle Lite Strips) As directed check the BS QD blood-glucose meter (FreeStyle Lite Meter kit) As directed bupropion HCl mg PO cholecalciferol (vitamin D3) 50 mcg PO DAILY cyclobenzaprine 5 mg PO TID PRN diclofenac sodium 1% (Voltaren Arthritis Pain) 4 grams topical QID fluticasone propionate 50 mcg/actuation (Flonase Allergy Relief) 2 sprays intranasal DAILY lamotrigine 200 mg PO BID lancets (FreeStyle Lancets) As directed check BS QD meclizine 25 mg PO BID PRN 1 week melatonin 10 mg PO BEDTIME PRN metformin 1,000 mg PO BID multivitamin (Daily-Emelyn tablet) 1 tab PO DAILY nicotine 1 patch topical DAILY pantoprazole 40 mg PO DAILY 90 days polyethylene glycol 3350 (Miralax) 238 grams PO ONCE propranolol 20 mg PO BID semaglutide (Ozempic) 0.25 mg (0.368 mL) subcut QWEEK zolpidem 10 mg PO BEDTIME PRN Tobacco use date assessed: 04/30/23 Dental Screening Dental Screen Date: 04/30/23 HPI lower back pain HPI Details 53-year-old female with past history gastric bypass, GERD, hypercholesterolemia, bipolar disorder last seen by Dr. Singer October 2023 coming in for follow up on cholesterol and DM. She states she is here for follow up on diabetes and cholesterol. Her last labs were completed prior to this appointment. She does mentioned she has poor diet and often has sugary drinks and fried foods. She has no other concerns today. [facility] Medical History Acute bacterial sinusitis Acute bacterial bronchitis Breast cancer screening by mammogram Colon cancer screening Screening for hypothyroidism Left otitis media ZHAO I (cervical intraepithelial neoplasia I) Irritable bowel syndrome Urinary incontinence Allergic rhinitis Insomnia Vitamin D deficiency Bipolar disorder Hypercholesterolemia Hypertension Carpal tunnel syndrome Type 2 diabetes mellitus with hyperglycemia Surgical History H/O tubal ligation H/O: hysterectomy Gastric bypass status for obesity Family History Father Heart attack Maternal Uncle Lung cancer Maternal Aunt Colon cancer Social History Housing: House Alcohol intake: never Patient Tobacco Use Status: Former Tobacco user Tobacco use type: Cigarette Years Smoked: last seen (01/2023) still smoking e-Cigarette/Vaping Use: Never Used service: No Current occupational status: employed Cognitive needs: No Hearing needs: No Vision needs: No Questionnaire Thrive Questionnaire Date Thrive assessed: 04/30/23 Are you currently unemployed and looking for a job?: No AUDIT C Alcohol Use Questionnaire (AUDIT-C) 1. How often do you have a drink containing alcohol?: Monthly or less 2. How many drinks containing alcohol do you have on a typical day when you are drinking?: 1 or 2 3. How often do you have six or more drinks on one occasion?: Never Total Score: 1 Score Reviewed/Action Taken: No YANNA-7 AMB Questionnaire YANNA-7 Date YANNA - 7 assessed: 10/28/23 Source: Developed by Drs. Rony Salmon, Sabina Lua, Eduardo Naylor and colleagues, with an educational dannielle from [employer]. Review of Systems Const Denies body aches, Denies chills, Denies fever(s), Denies headache(s) and Denies poor appetite Eyes Reports no additional complaints ENT Denies dizziness and Denies headache(s) Card Denies chest pain, Denies syncope, Denies edema and Denies dyspnea Resp Denies cough and Denies dyspnea GI Denies abdominal pain, Denies constipation, Denies diarrhea, Denies nausea and Denies vomiting Reports no additional complaints Musc Reports no additional complaints and Denies abnormal gait Skin/Breast Reports system reviewed and no additional complaints, except as documented Neuro Denies abnormal gait, Denies dizziness, Denies syncope and Denies headache(s) Psych Reports no additional complaints Physical exam (Primary Care) Vital Signs: Last Vital Signs Pulse 87 11/27/23 15:02 BP 108/76 11/27/23 15:02 Pulse Ox 97 11/27/23 15:02 Oxygen Delivery Method Room Air 11/27/23 15:02 BMI result Body Mass Index 25.4 Tobacco/Smoking Status: Tobacco use Status Tobacco use date assessed 04/30/23 11/27/23 14:59 Patient Tobacco Use Status Former Tobacco user 11/27/23 14:59 Tobacco use type Cigarette 11/27/23 14:59 e-Cigarette/Vaping Use Never Used 11/27/23 14:59 Thrive Assessment: Date of Thrive Assessment Date Thrive assessed 04/30/23 11/27/23 14:59 Const General: cooperative, healthy appearing, comfortable and no acute distress Orientation/consciousness: patient oriented x3 HENMT Head: Yes normocephalic Ears: hearing grossly normal bilaterally General nose exam: Normal external nose present Eyes General: appearance normal, both eyes and all related structures Conjunctivae: conjunctivae normal Neck Neck: Yes full ROM and Yes no lymphadenopathy Resp Effort & Inspection: normal respiratory effort Auscultation: clear to auscultation bilaterally, no crackles, no rales, no rhonchi and no wheezes Cardio Rate: regular rate Rhythm: regular rhythm Skin General skin exam: no rashes or lesions noted Neuro General: patient oriented x3 Gait exam (Neuro): Normal gait present Extrem General: Yes normal to inspection, Yes full ROM and No edema Psych Affect: normal affect Attitude: cooperative Insight: Good insight present (Psych) Judgement: Good judgement present (Psych) Assessment and Plan Assessment & Plan (1) Tobacco abuse: Code(s): Z72.0 - Tobacco use Plan: Strongly advised stop smoking (2) GERD (gastroesophageal reflux disease): Code(s): K21.9 - Gastro-esophageal reflux disease without esophagitis Qualifiers: Esophagitis presence: esophagitis presence not specified Qualified Code(s): K21.9 - Gastro-esophageal reflux disease without esophagitis Plan: Avoid trigger foods such as citrus, tomato products, soda, caffeine, spicy foods and other foods that may be irritating to your stomach. Avoid laying flat 3-4 hours after eating and elevate the head of the bed 30 degrees to prevent acid from moving into the esophagus. (3) Hypercholesterolemia: Code(s): E78.00 - Pure hypercholesterolemia, unspecified Plan: Avoid foods that are high in cholesterol such as red meat, fried foods, eggs and baked goods. Triglyceride goal of less than 150 and LDL goal of less than 100. Not currently on medical management strongly advised on lifestyle changes. Discussed with patient medication may be required if diet and lifestyle do not improve. (4) Hypertension: Code(s): I10 - Essential (primary) hypertension Qualifiers: Hypertension type: essential hypertension Qualified Code(s): I10 - Essential (primary) hypertension Plan: Blood pressure at goal today continue on current blood pressure medication and continue to avoid salt. (5) Type 2 diabetes mellitus with hyperglycemia: Code(s): E11.65 - Type 2 diabetes mellitus with hyperglycemia Qualifiers: Diabetes mellitus correction insulin use: without correction use Qualified Code(s): E11.65 - Type 2 diabetes mellitus with hyperglycemia Plan: Decrease the amount of carbohydrates such as pasta, bread, rice, and potatoes and limit the amount of sweets. Although fruits are generally healthy they should be eaten in moderation as they are still high in sugar. Hemoglobin A1c goal of less than 7%. A1c elevated on last exam and will be retaken next appointment. Patient was previously on Trulicity which was covered by insurance and has been unable to get the Ozempic that prescribed prescription sent for Trulicity today. Plan This note was constructed using voice recognition software. While every effort has been made to ensure accuracy and movers, still areas may have been included sometimes these areas may affect the content or meeting of the given symptoms. Total time spent caring for the patient today was 30 minutes. This includes time spent before the visit reviewing the chart, time spent during the visit, and time spent after the visit and documentation. Medications: New dulaglutide (Trulicity) 0.75 mg (0.5 mL) subcut QWEEK 1 mL 0RF On Hold semaglutide (Ozempic) Hold Comment: Dose Change 0.25 mg (0.368 mL) subcut QWEEK 3 mL 2RF E11.65 - Type 2 diabetes mellitus with hyperglycemia Coding Level of Care Code Est Pt Level 4 (64150) Diagnoses Tobacco abuse Z72.0 Gastroesophageal reflux disease, unspecified whether esophagitis present K21.9 Esophagitis presence: esophagitis presence not specified Hypercholesterolemia E78.00 Essential hypertension I10 Hypertension type: essential hypertension Type 2 diabetes mellitus with hyperglycemia, without long-term current use of insulin E11.65 Diabetes mellitus correction insulin use: without rat exterminator use
[2023-11-27 15:02] VITALS: BP 108/76; PULSE 87; O2SAT 97; BMI 25.4
== END 2023-11-27 15:35 | disposition home or self-care (01) ==
PROVIDERS: PCP Internal Medicine
DX: E11.65 Type 2 diabetes mellitus with hyperglycemia (principal); Z72.0 Tobacco use; K21.9 Gastro-esophageal reflux disease without esophagitis; E78.00 Pure hypercholesterolemia, unspecified; I10 Essential (primary) hypertension

== ENCOUNTER → 2023-11-27 14:57 | Outpatient (BNVA) | payer OTHER, SELFPAY | PROVIDERS: PCP Internal Medicine | DX: E78.00 Pure hypercholesterolemia, unspecified (principal); E11.65 Type 2 diabetes mellitus with hyperglycemia; K21.9 Gastro-esophageal reflux disease without esophagitis; I10 Essential (primary) hypertension; Z72.0 Tobacco use; Z71.6 Tobacco abuse counseling | CPT/HCPCS: 99212 ==

== ENCOUNTER 2024-01-11 16:00 | Outpatient (RCR) | payer OTHER, SELFPAY ==
--- NOTE | 2023-12-23 14:50 | MHC.PT.EP ---
[facility] [place] Office [place] [facility] [place] Office [address] Mala Waddell [address] [phone] F: [phone] F: [phone] F: [phone] F: [phone] Physical Therapy Plan of Care Date of Evaluation: 12/22/23 Date of Surgery: n/a Diagnosis: Pain in right hip Assessment: Pt is a pleasant and motivated 53yo F who presents to PT with right hip pain. She presents to PT with current impairments in pain, decreased lumbar ROM, decreased hip ROM, posterior chain tightness, increased neural tension, decreased hip/glute strength, soft tissue restrictions, and impaired posture. She is limited functionally by prolonged standing (~30 min), walking, prolonged sitting, stair navigation, and bending. She is an excellent candidate for skilled PT in order to address current impairments to facilitate return to PLOF. She is recommended to be seen 2x/week for 4 weeks and will be reassessed at that time Frequency and Duration: The patient will be seen 2x/week for 4 weeks Short Term Goals: Pt will be I with HEP to promote self management of symptoms Pt will demonstrate improvements in postural awareness and body mechanics throughout the day Pt will improve quad strength by 1/2 grade Supervisor Pig Machine Goals: Pt will achieve full ROM and strength all planes of right hip to assist with LE ADLs Pt will tolerate standing and walking > 1 hour with minimal to no pain Pt will demonstrate improvements in function as evidenced by statistically significant improvement in LEFI outcome measure Treatment Plan: Modalities to reduce pain, spasms and effusion. Manual therapy to restore motion and function. Therapeutic exercise to improve strength and flexibility. Neuromuscular re-education for posture and balance. Therapeutic activities to return to functional activities of daily living. Electronically signed by: Geneva Brooks, PT, DPT Please sign and return to therapist. Thank you for your referral.
--- NOTE | 2024-04-04 11:51 | MHC.PT.DC ---
[facility] [place] [facility] [place] [facility] [place] Office [address] Mlaa Waddell [address] [phone] F: [phone] F: [phone] F: [phone] F: [phone] Physical Therapy Discharge Report Diagnosis: Pain in right hip Date of Surgery: n/a Date of Evaluation: 12/22/23 Date of Discharge: 04/04/24 Treatments to Date: 4 Cancellations to Date: 3 No Shows to Date: 2 Discharge Status: Visit Non-compliance Discharge Summary: Pt was seen for PT from 12/22/23-01/11/24. She has had 3 cancellations and 2 no show appointments since SOC. She is being D/C from skilled PT per [facility] attendance policy and visit non compliance. Pt current level of function unknown at this time Electronically signed by: Geneva Brooks, PT, DPT Please sign and return to therapist. Thank you for your referral.
== END 2024-04-04 11:51 | disposition home or self-care (01) ==
LOC: HO.PT 16:00
PROVIDERS: PCP Internal Medicine; Visit Provider Internal Medicine
DX: M25.551 Pain in right hip (principal); M25.531 Pain in right wrist; V89.2XXD Person injured in unspecified motor-vehicle accident, traffic, subsequent encounter
CPT/HCPCS: 97110; 97140; 97161; 97530

== ENCOUNTER 2024-02-17 15:29 | Emergency (ER) | payer OTHER, SELFPAY ==
[2024-02-17 15:31] VITALS: BP 150/78; PULSE 104; RESP 18; TEMP 36.6; O2SAT 97; BMI 25.7
--- NOTE | 2024-02-17 15:32 | ED.GENADULT ---
HPI - General Adult General Chief complaint: Skin/Abscess/Foreign Body Stated complaint: abscess on neck Time Seen by Provider: 02/17/24 18:30 Related Data Home Medications ?Medication ?Instructions ?Recorded ?Confirmed lamotrigine 200 mg tablet 200 mg PO BID 04/30/20 11/27/23 bupropion HCl 100 mg tablet mg PO 11/24/23 11/27/23 nicotine 21 mg/24 hr daily 1 patch topical DAILY 11/24/23 11/27/23 transdermal patch propranolol 10 mg tablet 20 mg PO BID 11/24/23 11/27/23 zolpidem 10 mg tablet 10 mg PO BEDTIME PRN 11/24/23 11/27/23 Previous Rx's ?Medication ?Instructions ?Recorded meclizine 25 mg tablet 25 mg PO BID PRN dizziness 1 week 02/07/21 #14 tabs blood-glucose meter (FreeStyle #1 ea 02/20/22 Lite Meter kit) lancets 28 gauge (FreeStyle #100 ea 02/20/22 Lancets) bisacodyl 5 mg tablet,delayed 20 mg (4 x 5 mg) PO ONCE 1 day #4 02/27/23 release (Dulcolax (bisacodyl)) tabs polyethylene glycol 3350 17 238 g PO ONCE #238 grams 02/27/23 gram/dose oral powder (Miralax) multivitamin (Daily-Emelyn tablet) 1 tab PO DAILY #90 tabs 08/31/23 melatonin 10 mg capsule 10 mg PO BEDTIME PRN sleep #30 caps 09/25/23 semaglutide 0.25 mg or 0.5 mg (2 0.25 mg (0.368 mL) subcut QWEEK #3 09/25/23 mg/3 mL) subcutaneous pen injector mL (Ozempic) cyclobenzaprine 5 mg tablet 5 mg PO TID PRN muscle spasm #20 10/28/23 tabs diclofenac sodium 1 % topical gel 4 g topical QID #100 grams 10/28/23 (Voltaren Arthritis Pain) amoxicillin 875 mg-potassium 1 tab PO Q12H #10 tabs 11/24/23 clavulanate 125 mg tablet metformin 1,000 mg tablet 1,000 mg PO BID #180 tabs 12/02/23 pantoprazole 40 mg tablet,delayed 40 mg PO DAILY 90 days #90 tabs 12/02/23 release dulaglutide 0.75 mg/0.5 mL 0.75 mg (0.5 mL) subcut QWEEK #2 mL 12/28/23 subcutaneous pen injector (Trulicity) blood sugar diagnostic (FreeStyle #100 ea 01/04/24 Lite Strips) fluticasone propionate 50 2 spray intranasal DAILY #16 grams 01/04/24 mcg/actuation nasal spray,suspension (Flonase Allergy Relief) cholecalciferol (vitamin D3) 50 50 mcg PO DAILY #90 tabs 02/03/24 mcg (2,000 unit) tablet doxycycline monohydrate 100 mg 100 mg PO BID #10 caps 02/17/24 capsule Allergies Allergy/AdvReac Type Severity Reaction Status Date / Time Sulfa (Sulfonamide Allergy Hives Verified 02/17/24 15:33 Antibiotics) Sulfacet-R Allergy Intermediate Hives Uncoded 11/27/23 15:05 PMFSH Past Medical History Medical History Acute bacterial sinusitis Acute bacterial bronchitis Breast cancer screening by mammogram Colon cancer screening Screening for hypothyroidism Left otitis media ZHAO I (cervical intraepithelial neoplasia I) Irritable bowel syndrome Urinary incontinence Allergic rhinitis Insomnia Vitamin D deficiency Bipolar disorder Hypercholesterolemia Hypertension Carpal tunnel syndrome Type 2 diabetes mellitus with hyperglycemia Surgical History H/O tubal ligation H/O: hysterectomy Gastric bypass status for obesity Family History Family History Father Heart attack Maternal Uncle Lung cancer Maternal Aunt Colon cancer Social History Social History Housing: House Alcohol intake: never Patient Tobacco Use Status: Former Tobacco user Tobacco use type: Cigarette Years Smoked: last seen (01/2023) still smoking e-Cigarette/Vaping Use: Never Used Advance Directives: No Advance Directives Information Provided: No Do you have a plan to hurt others: No Plan service: No Current occupational status: employed Cognitive needs: No Hearing needs: No Vision needs: No Physical Exam ED Vital Signs: Vital Signs - 24 hr 02/17/24 15:31 Temperature 97.8 F Pulse Rate 104 H Respiratory Rate 18 Blood Pressure 150/78 H Pulse Oximetry 97 Oxygen Delivery Method Room Air BMI result Body Mass Index 25.7 Course Course Course Narrative: RME, this is a rapid medical exam performed by Thad Nguyễn please refer to primary provider for complete H&P- 53-year-old female with history of diabetes, gastric bypass, hypertension, GERD presents for evaluation of a small abscess to the back of the neck. On exam she has about a 2 cm cutaneous abscess to the posterior neck. There is some surrounding erythema, no active drainage. The area is indurated Medications Administered Discontinued Medications Generic Name Dose Route Start Last Admin Trade Name Freq PRN Reason Stop Dose Admin Doxycycline Monohydrate 100 mg 02/17/24 19:09 02/17/24 19:17 Doxycycline Monohydrate 100 Mg Capsule PO 02/17/24 19:10 100 mg ONCE ONE Administration Lidocaine HCl 10 ml 02/17/24 19:09 02/17/24 19:18 Lidocaine Hcl 1 % Mpf 5 Ml Vial SUBCUT 02/17/24 19:10 10 ml ONCE ONE Administration Discharge Plan Discharge Clinical Impression: Abscess Patient Disposition: Home, Self-Care Instructions: Abscess (ED), Abscess Incision and Drainage (DC) Prescriptions: New doxycycline monohydrate 100 mg capsule 100 mg PO BID Qty: 10 0RF No Action bisacodyl [Dulcolax (bisacodyl)] 5 mg tablet,delayed release (DR/EC) 20 mg PO ONCE 1 Days Qty: 4 0RF Rx Instructions: take 4 tabs at noon the day before your colonoscopy polyethylene glycol 3350 [Miralax] 17 gram/dose powder 238 g PO ONCE Qty: 238 0RF Rx Instructions: As directed by gastroenterology department at [facility] multivitamin [Daily-Emelyn] Tablet 1 tab PO DAILY Qty: 90 3RF pantoprazole 40 mg tablet,delayed release (DR/EC) 40 mg PO DAILY 90 Days Qty: 90 3RF metformin 1,000 mg tablet 1,000 mg PO BID Qty: 180 1RF Trulicity 0.75 mg/0.5 mL pen injector 0.75 mg subcut QWEEK Qty: 2 0RF (DME) FreeStyle Lite Strips Strip See Rx Instructions .ROUTE .MEDSUPPLY Qty: 100 3RF Rx Instructions: As directed check the BS QD fluticasone propionate [Flonase Allergy Relief] 50 mcg/actuation spray,suspension 2 spray intranasal DAILY Qty: 16 2RF Rx Instructions: administer into each nostril cholecalciferol (vitamin D3) 50 mcg (2,000 unit) tablet 50 mcg PO DAILY Qty: 90 0RF lamotrigine 200 mg tablet 200 mg PO BID meclizine 25 mg tablet 25 mg PO BID PRN (Reason: dizziness) 7 Days Qty: 14 0RF melatonin 10 mg capsule 10 mg PO BEDTIME PRN (Reason: sleep) Qty: 30 0RF Ozempic 0.25 mg or 0.5 mg (2 mg/3 mL) pen injector 0.25 mg subcut QWEEK Qty: 3 2RF Rx Instructions: for 4 weeks cyclobenzaprine 5 mg tablet 5 mg PO TID PRN (Reason: muscle spasm) Qty: 20 0RF diclofenac sodium [Voltaren Arthritis Pain] 1 % gel 4 g topical QID Qty: 100 2RF Rx Instructions: apply to single knee, ankle, foot; for foot includes sole/toes/top of foot (DME) blood-glucose meter [FreeStyle Lite Meter] Kit See Rx Instructions .ROUTE .MEDSUPPLY Qty: 1 0RF Rx Instructions: As directed (DME) lancets [FreeStyle Lancets] 28 gauge misc See Rx Instructions .ROUTE .MEDSUPPLY Qty: 100 3RF Rx Instructions: As directed check BS QD zolpidem 10 mg tablet 10 mg PO BEDTIME PRN nicotine 21 mg/24 hr patch 24 hour 1 patch topical DAILY propranolol 10 mg tablet 20 mg PO BID bupropion HCl 100 mg tablet PO amoxicillin-pot clavulanate 875-125 mg tablet 1 tab PO Q12H Qty: 10 0RF Referrals: Kae Piper MD [Emergency Provider] - 02/19/24 Print Language: Kinyarwanda
--- NOTE | 2024-02-17 19:10 | ED_ITS ---
HPI - Skin/Abscess/Foreign Bdy General Chief complaint: Skin/Abscess/Foreign Body Stated complaint: abscess on neck Time Seen by Provider: 02/17/24 18:30 History of Present Illness HPI narrative: patient is a 53-year-old female presents today with having a redness swelling to the occipital area for the last 2 days. No systemic complaints. Positive history of diabetes. Patient is from home. History of abscesses in the past. Related Data Home Medications ?Medication ?Instructions ?Recorded ?Confirmed lamotrigine 200 mg tablet 200 mg PO BID 04/30/20 11/27/23 bupropion HCl 100 mg tablet mg PO 11/24/23 11/27/23 nicotine 21 mg/24 hr daily 1 patch topical DAILY 11/24/23 11/27/23 transdermal patch propranolol 10 mg tablet 20 mg PO BID 11/24/23 11/27/23 zolpidem 10 mg tablet 10 mg PO BEDTIME PRN 11/24/23 11/27/23 Previous Rx's ?Medication ?Instructions ?Recorded meclizine 25 mg tablet 25 mg PO BID PRN dizziness 1 week 02/07/21 #14 tabs blood-glucose meter (FreeStyle #1 ea 02/20/22 Lite Meter kit) lancets 28 gauge (FreeStyle #100 ea 02/20/22 Lancets) bisacodyl 5 mg tablet,delayed 20 mg (4 x 5 mg) PO ONCE 1 day #4 02/27/23 release (Dulcolax (bisacodyl)) tabs polyethylene glycol 3350 17 238 g PO ONCE #238 grams 02/27/23 gram/dose oral powder (Miralax) multivitamin (Daily-Emelyn tablet) 1 tab PO DAILY #90 tabs 08/31/23 melatonin 10 mg capsule 10 mg PO BEDTIME PRN sleep #30 caps 09/25/23 semaglutide 0.25 mg or 0.5 mg (2 0.25 mg (0.368 mL) subcut QWEEK #3 09/25/23 mg/3 mL) subcutaneous pen injector mL (Ozempic) cyclobenzaprine 5 mg tablet 5 mg PO TID PRN muscle spasm #20 10/28/23 tabs diclofenac sodium 1 % topical gel 4 g topical QID #100 grams 10/28/23 (Voltaren Arthritis Pain) amoxicillin 875 mg-potassium 1 tab PO Q12H #10 tabs 11/24/23 clavulanate 125 mg tablet metformin 1,000 mg tablet 1,000 mg PO BID #180 tabs 12/02/23 pantoprazole 40 mg tablet,delayed 40 mg PO DAILY 90 days #90 tabs 12/02/23 release dulaglutide 0.75 mg/0.5 mL 0.75 mg (0.5 mL) subcut QWEEK #2 mL 12/28/23 subcutaneous pen injector (Trulicity) blood sugar diagnostic (FreeStyle #100 ea 01/04/24 Lite Strips) fluticasone propionate 50 2 spray intranasal DAILY #16 grams 01/04/24 mcg/actuation nasal spray,suspension (Flonase Allergy Relief) cholecalciferol (vitamin D3) 50 50 mcg PO DAILY #90 tabs 02/03/24 mcg (2,000 unit) tablet doxycycline monohydrate 100 mg 100 mg PO BID #10 caps 02/17/24 capsule Allergies Allergy/AdvReac Type Severity Reaction Status Date / Time Sulfa (Sulfonamide Allergy Hives Verified 02/17/24 15:33 Antibiotics) Sulfacet-R Allergy Intermediate Hives Uncoded 11/27/23 15:05 Review of Systems Review of Systems: No fever no chills no nausea no vomiting no systemic complaints Yes all other systems are reviewed and are negative [facility] Past Medical History Attestation statement: The following information was validated with the patient. Medical History Acute bacterial sinusitis Acute bacterial bronchitis Breast cancer screening by mammogram Colon cancer screening Screening for hypothyroidism Left otitis media ZHAO I (cervical intraepithelial neoplasia I) Irritable bowel syndrome Urinary incontinence Allergic rhinitis Insomnia Vitamin D deficiency Bipolar disorder Hypercholesterolemia Hypertension Carpal tunnel syndrome Type 2 diabetes mellitus with hyperglycemia Surgical History H/O tubal ligation H/O: hysterectomy Gastric bypass status for obesity Family History Family History Father Heart attack Maternal Uncle Lung cancer Maternal Aunt Colon cancer Social History Social History Housing: House Alcohol intake: never Patient Tobacco Use Status: Former Tobacco user Tobacco use type: Cigarette Years Smoked: last seen (01/2023) still smoking e-Cigarette/Vaping Use: Never Used Advance Directives: No Advance Directives Information Provided: No Do you have a plan to hurt others: No Plan service: No Current occupational status: employed Cognitive needs: No Hearing needs: No Vision needs: No Physical Exam Vital Signs: Vital Signs: Last Vital Signs Temp 97.8 F 02/17/24 15:31 Pulse 104 H 02/17/24 15:31 Resp 18 02/17/24 15:31 BP 150/78 H 02/17/24 15:31 Pulse Ox 97 02/17/24 15:31 O2 Del Method Room Air 02/17/24 15:31 BMI result Body Mass Index 25.7 Appearance: Alert. Oriented X3. No acute distress. Eyes: Pupils equal, round and reactive to light. ENT: Pharynx normal. Neck: Normal inspection. Neck supple. No lymph nodes noted. No crepitus CVS: Normal heart rate and rhythm. Pulses normal. Normal S1 and S2 Respiratory: No respiratory distress. Breath sounds normal. No Wheezing. No rales Abdomen: Soft and nontender. No rigidity. No distention. good BS x4 Skin: positive abscess in the occipital area. Approximately 3 cm x 3 cm in size. Fluctuant. No discharge expressed. Extremities: No lower extremity edema. Neurovascular intact to all extremities. No Lacerations. No Rash Neuro: Oriented X 3. No motor deficit. No sensory deficit. Moving all extermities. No slurred speech Medications Administered Discontinued Medications Generic Name Dose Route Start Last Admin Trade Name Freq PRN Reason Stop Dose Admin Doxycycline Monohydrate 100 mg 02/17/24 19:09 02/17/24 19:17 Doxycycline Monohydrate 100 Mg Capsule PO 02/17/24 19:10 100 mg ONCE ONE Administration Lidocaine HCl 10 ml 02/17/24 19:09 02/17/24 19:18 Lidocaine Hcl 1 % Mpf 5 Ml Vial SUBCUT 02/17/24 19:10 10 ml ONCE ONE Administration Medical Decision Making Medical Decision Making [facility] Narrative: Patient's abscess was I indeed. Antibiotics started. Patient to follow-up on an outpatient basis. In stable condition. Differential Diagnosis Differential Diagnoses: The differential diagnosis associated with the presentation includes Abscess, cellulitis Admission/Observation Consideration of admission/observation: Escalation of care including admission/observation considered Chronic Conditions Patient?s care impacted by: Diabetes Procedures Abscess I/D Site: scalp Side (if applicable): left Local Anesthetic: lidocaine 1% Amount of anesthesia used (mL): 7 Technique: incised with blade Amount of fluid expressed (mL): 5 Sent for culture/gram staining?: Yes Irrigation: Yes Packing used?: plain Discharge Plan Discharge Clinical Impression: Abscess Patient Disposition: Home, Self-Care Instructions: Abscess (ED), Abscess Incision and Drainage (DC) Prescriptions: New doxycycline monohydrate 100 mg capsule 100 mg PO BID Qty: 10 0RF No Action bisacodyl [Dulcolax (bisacodyl)] 5 mg tablet,delayed release (DR/EC) 20 mg PO ONCE 1 Days Qty: 4 0RF Rx Instructions: take 4 tabs at noon the day before your colonoscopy polyethylene glycol 3350 [Miralax] 17 gram/dose powder 238 g PO ONCE Qty: 238 0RF Rx Instructions: As directed by gastroenterology department at [facility] multivitamin [Daily-Emelyn] Tablet 1 tab PO DAILY Qty: 90 3RF pantoprazole 40 mg tablet,delayed release (DR/EC) 40 mg PO DAILY 90 Days Qty: 90 3RF metformin 1,000 mg tablet 1,000 mg PO BID Qty: 180 1RF Trulicity 0.75 mg/0.5 mL pen injector 0.75 mg subcut QWEEK Qty: 2 0RF (DME) FreeStyle Lite Strips Strip See Rx Instructions .ROUTE .MEDSUPPLY Qty: 100 3RF Rx Instructions: As directed check the BS QD fluticasone propionate [Flonase Allergy Relief] 50 mcg/actuation spray,suspension 2 spray intranasal DAILY Qty: 16 2RF Rx Instructions: administer into each nostril cholecalciferol (vitamin D3) 50 mcg (2,000 unit) tablet 50 mcg PO DAILY Qty: 90 0RF lamotrigine 200 mg tablet 200 mg PO BID meclizine 25 mg tablet 25 mg PO BID PRN (Reason: dizziness) 7 Days Qty: 14 0RF melatonin 10 mg capsule 10 mg PO BEDTIME PRN (Reason: sleep) Qty: 30 0RF Ozempic 0.25 mg or 0.5 mg (2 mg/3 mL) pen injector 0.25 mg subcut QWEEK Qty: 3 2RF Rx Instructions: for 4 weeks cyclobenzaprine 5 mg tablet 5 mg PO TID PRN (Reason: muscle spasm) Qty: 20 0RF diclofenac sodium [Voltaren Arthritis Pain] 1 % gel 4 g topical QID Qty: 100 2RF Rx Instructions: apply to single knee, ankle, foot; for foot includes sole/toes/top of foot (DME) blood-glucose meter [FreeStyle Lite Meter] Kit See Rx Instructions .ROUTE .MEDSUPPLY Qty: 1 0RF Rx Instructions: As directed (DME) lancets [FreeStyle Lancets] 28 gauge misc See Rx Instructions .ROUTE .MEDSUPPLY Qty: 100 3RF Rx Instructions: As directed check BS QD zolpidem 10 mg tablet 10 mg PO BEDTIME PRN nicotine 21 mg/24 hr patch 24 hour 1 patch topical DAILY propranolol 10 mg tablet 20 mg PO BID bupropion HCl 100 mg tablet PO amoxicillin-pot clavulanate 875-125 mg tablet 1 tab PO Q12H Qty: 10 0RF Referrals: Kae Piper MD [Emergency Provider] - 02/19/24 Print Language: Monegasque
[2024-02-17] MEDS: Doxycycline Monohydrate 100 MG CAPSULE PO (19:17)
[2024-02-17] MEDS: Lidocaine HCl 1 % MPF 5 ML VIAL 10 ML SUBCUT (19:18)
[2024-02-17 19:55] VITALS: BP 150/78; PULSE 104; RESP 18; TEMP 36.6; O2SAT 97
== END 2024-02-17 19:56 | disposition home or self-care (01) ==
PROVIDERS: Emergency Provider Emergency Medicine Emergency Medical Services; PCP Internal Medicine
DX: L02.811 Cutaneous abscess of head [any part, except face] (principal); L02.11 Cutaneous abscess of neck; I10 Essential (primary) hypertension; E11.9 Type 2 diabetes mellitus without complications; Z98.84 Bariatric surgery status; Z87.891 Personal history of nicotine dependence; Z79.899 Other long term (current) drug therapy; Z79.4 Long term (current) use of insulin
CPT/HCPCS: 10060; 87070; 87077; 87186; 87205; 99282; 99284; J2003

== ENCOUNTER 2024-02-20 10:35 | Emergency (ER) | payer OTHER, SELFPAY ==
[2024-02-20 10:41] VITALS: BP 130/73; PULSE 90; RESP 16; TEMP 36.4; O2SAT 98; BMI 25.7
--- NOTE | 2024-02-20 10:51 | ED_ITS ---
HPI - Wound/Laceration General Chief Complaint: Wound/Laceration Stated Complaint: packing removal Time Seen by Provider: 02/20/24 10:51 Source: patient, RN notes reviewed and old records reviewed Mode of arrival: ambulatory Limitations: no limitations History of Present Illness ED Provider: Matt Coyle PA-C HPI narrative: 53-year-old female with history of a abscess on the back of her neck that was incised and drained here 3 days ago presents to the ER today for packing removal. Patient was discharged on doxycycline and has been compliant with the medication. Culture is growing MRSA. she reports she has some tenderness to the area but no drainage, no bleeding or warmth that she can tell. no fevers. Onset (ago): day(s) Place: home Associated symptoms: pain Treatments prior to arrival: bandage Related Data Home Medications ?Medication ?Instructions ?Recorded ?Confirmed lamotrigine 200 mg tablet 200 mg PO BID 04/30/20 11/27/23 bupropion HCl 100 mg tablet mg PO 11/24/23 11/27/23 nicotine 21 mg/24 hr daily 1 patch topical DAILY 11/24/23 11/27/23 transdermal patch propranolol 10 mg tablet 20 mg PO BID 11/24/23 11/27/23 zolpidem 10 mg tablet 10 mg PO BEDTIME PRN 11/24/23 11/27/23 Previous Rx's ?Medication ?Instructions ?Recorded meclizine 25 mg tablet 25 mg PO BID PRN dizziness 1 week 02/07/21 #14 tabs blood-glucose meter (FreeStyle #1 ea 02/20/22 Lite Meter kit) lancets 28 gauge (FreeStyle #100 ea 02/20/22 Lancets) bisacodyl 5 mg tablet,delayed 20 mg (4 x 5 mg) PO ONCE 1 day #4 02/27/23 release (Dulcolax (bisacodyl)) tabs polyethylene glycol 3350 17 238 g PO ONCE #238 grams 02/27/23 gram/dose oral powder (Miralax) multivitamin (Daily-Emelyn tablet) 1 tab PO DAILY #90 tabs 08/31/23 melatonin 10 mg capsule 10 mg PO BEDTIME PRN sleep #30 caps 09/25/23 semaglutide 0.25 mg or 0.5 mg (2 0.25 mg (0.368 mL) subcut QWEEK #3 09/25/23 mg/3 mL) subcutaneous pen injector mL (Ozempic) cyclobenzaprine 5 mg tablet 5 mg PO TID PRN muscle spasm #20 10/28/23 tabs diclofenac sodium 1 % topical gel 4 g topical QID #100 grams 10/28/23 (Voltaren Arthritis Pain) amoxicillin 875 mg-potassium 1 tab PO Q12H #10 tabs 11/24/23 clavulanate 125 mg tablet metformin 1,000 mg tablet 1,000 mg PO BID #180 tabs 12/02/23 pantoprazole 40 mg tablet,delayed 40 mg PO DAILY 90 days #90 tabs 12/02/23 release dulaglutide 0.75 mg/0.5 mL 0.75 mg (0.5 mL) subcut QWEEK #2 mL 12/28/23 subcutaneous pen injector (Trulicity) blood sugar diagnostic (FreeStyle #100 ea 01/04/24 Lite Strips) fluticasone propionate 50 2 spray intranasal DAILY #16 grams 01/04/24 mcg/actuation nasal spray,suspension (Flonase Allergy Relief) cholecalciferol (vitamin D3) 50 50 mcg PO DAILY #90 tabs 02/03/24 mcg (2,000 unit) tablet doxycycline monohydrate 100 mg 100 mg PO BID #10 caps 02/17/24 capsule Allergies Allergy/AdvReac Type Severity Reaction Status Date / Time Sulfa (Sulfonamide Allergy Hives Verified 02/20/24 10:43 Antibiotics) Sulfacet-R Allergy Intermediate Hives Uncoded 02/20/24 10:43 Review of Systems Review of Systems: Yes all other systems are reviewed and are negative [facility] Past Medical History Medical History Acute bacterial sinusitis Acute bacterial bronchitis Breast cancer screening by mammogram Colon cancer screening Screening for hypothyroidism Left otitis media ZHAO I (cervical intraepithelial neoplasia I) Irritable bowel syndrome Urinary incontinence Allergic rhinitis Insomnia Vitamin D deficiency Bipolar disorder Hypercholesterolemia Hypertension Carpal tunnel syndrome Type 2 diabetes mellitus with hyperglycemia Surgical History H/O tubal ligation H/O: hysterectomy Gastric bypass status for obesity Family History Family History Father Heart attack Maternal Uncle Lung cancer Maternal Aunt Colon cancer Social History Social History Housing: House Alcohol intake: never Patient Tobacco Use Status: Former Tobacco user Tobacco use type: Cigarette Years Smoked: last seen (01/2023) still smoking e-Cigarette/Vaping Use: Never Used Advance Directives: No Advance Directives Information Provided: No service: No Current occupational status: employed Cognitive needs: No Hearing needs: No Vision needs: No Physical Exam Vital Signs: Vital Signs: Last Vital Signs Temp 97.6 F 02/20/24 11:19 Pulse 90 02/20/24 11:19 Resp 16 02/20/24 11:19 BP 130/73 02/20/24 11:19 Pulse Ox 98 02/20/24 11:19 O2 Del Method Room Air 02/20/24 11:19 BMI result Body Mass Index 25.7 Appearance: Alert. Oriented X3. No acute distress. HEENT: normal external inspection CVS: Normal heart rate and rhythm. Pulses normal. Respiratory: No respiratory distress. Skin: Skin warm and dry. Normal skin color. Normal skin turgor. the back of the neck there is a small area, approx 2 cm with scabbing. no surrounding erythema, no warmth, no drainage. mild tenderness Extremities: normal inspection x4. Neuro: Oriented X 3. grossly normal, nonfocal Medical Decision Making Medical Decision Making MDM Narrative: 53 yo female presenting for packing removal from an abscess to the back of her neck that was I&D on 02/16. MRSA + on doxy packing was removed and a small amount replaced. tolerated well. local wound care provided DSD placed. ok to remove placed packing at home in 2 days stable for dc home Differential Diagnosis Differential Diagnoses: The differential diagnosis associated with the presentation includes appropriate wound healing, delayed wound healing, cellulitis, abscess External Record Review External record reviewed: Outpatient record and Prior outpatient labs Prescription Management I considered prescription management with: Pain Medication and Antibiotic Procedures Abscess I/D Site: neck Irrigation: Yes Packing used?: iodoform Critical Care Time Critical Care Time Critical Care Time: No Discharge Plan Discharge Clinical Impression: MRSA (methicillin resistant staph aureus) culture positive Patient Disposition: Home, Self-Care Instructions: MRSA (Methicillin-Resistant Staphylococcus Aureus) (ED) Additional Instructions: Continue the previously prescribed antibiotic. You can remove the small amount of packing that was placed today tomorrow or the next day. It is okay to get wet briefly, then pat dry. Keep clean and recommend keeping it covered. Follow-up with your doctor If you develop new or worsening symptoms call 911 or come back to the ER for further evaluation. Prescriptions: No Action bisacodyl [Dulcolax (bisacodyl)] 5 mg tablet,delayed release (DR/EC) 20 mg PO ONCE 1 Days Qty: 4 0RF Rx Instructions: take 4 tabs at noon the day before your colonoscopy polyethylene glycol 3350 [Miralax] 17 gram/dose powder 238 g PO ONCE Qty: 238 0RF Rx Instructions: As directed by gastroenterology department at [facility] multivitamin [Daily-Emelyn] Tablet 1 tab PO DAILY Qty: 90 3RF pantoprazole 40 mg tablet,delayed release (DR/EC) 40 mg PO DAILY 90 Days Qty: 90 3RF metformin 1,000 mg tablet 1,000 mg PO BID Qty: 180 1RF Trulicity 0.75 mg/0.5 mL pen injector 0.75 mg subcut QWEEK Qty: 2 0RF (DME) FreeStyle Lite Strips Strip See Rx Instructions .ROUTE .MEDSUPPLY Qty: 100 3RF Rx Instructions: As directed check the BS QD fluticasone propionate [Flonase Allergy Relief] 50 mcg/actuation spray,suspension 2 spray intranasal DAILY Qty: 16 2RF Rx Instructions: administer into each nostril cholecalciferol (vitamin D3) 50 mcg (2,000 unit) tablet 50 mcg PO DAILY Qty: 90 0RF doxycycline monohydrate 100 mg capsule 100 mg PO BID Qty: 10 0RF lamotrigine 200 mg tablet 200 mg PO BID meclizine 25 mg tablet 25 mg PO BID PRN (Reason: dizziness) 7 Days Qty: 14 0RF melatonin 10 mg capsule 10 mg PO BEDTIME PRN (Reason: sleep) Qty: 30 0RF Ozempic 0.25 mg or 0.5 mg (2 mg/3 mL) pen injector 0.25 mg subcut QWEEK Qty: 3 2RF Rx Instructions: for 4 weeks cyclobenzaprine 5 mg tablet 5 mg PO TID PRN (Reason: muscle spasm) Qty: 20 0RF diclofenac sodium [Voltaren Arthritis Pain] 1 % gel 4 g topical QID Qty: 100 2RF Rx Instructions: apply to single knee, ankle, foot; for foot includes sole/toes/top of foot (DME) blood-glucose meter [FreeStyle Lite Meter] Kit See Rx Instructions .ROUTE .MEDSUPPLY Qty: 1 0RF Rx Instructions: As directed (DME) lancets [FreeStyle Lancets] 28 gauge misc See Rx Instructions .ROUTE .MEDSUPPLY Qty: 100 3RF Rx Instructions: As directed check BS QD zolpidem 10 mg tablet 10 mg PO BEDTIME PRN nicotine 21 mg/24 hr patch 24 hour 1 patch topical DAILY propranolol 10 mg tablet 20 mg PO BID bupropion HCl 100 mg tablet PO amoxicillin-pot clavulanate 875-125 mg tablet 1 tab PO Q12H Qty: 10 0RF Interventions: ED Discharge Assessment Last Done: 02/20/24 11:19 Discharge Date/Time: 02/20/24 11:23 Print Language: Hong [place]er
[2024-02-20 11:19] VITALS: BP 130/73; PULSE 90; RESP 16; TEMP 36.4; O2SAT 98
== END 2024-02-20 11:23 | disposition home or self-care (01) ==
PROVIDERS: Emergency Provider Emergency Medicine Emergency Medical Services; PCP Internal Medicine
DX: L02.11 Cutaneous abscess of neck (principal); B95.62 Methicillin resistant Staphylococcus aureus infection as the cause of diseases classified elsewhere; Z48.01 Encounter for change or removal of surgical wound dressing
CPT/HCPCS: 10060; 99282; 99284

== ENCOUNTER 2024-04-11 09:32 | Outpatient (REF) | payer OTHER, SELFPAY ==
[2024-04-11 15:22] LABS: Influenza A PCR POSITIVE (Negative); Influenza B PCR NEGATIVE (Negative); Resp Syncy Virus RNA Qual PCR NEGATIVE (Negative); SARS COV2 PCR INHOUSE NEGATIVE (Negative)
== END 2024-04-11 09:33 | disposition home or self-care (01) ==
LOC: HO.LAB 09:32
PROVIDERS: PCP Internal Medicine; Visit Provider Physician Assistant
DX: J06.9 Acute upper respiratory infection, unspecified (principal); H66.002 Acute suppurative otitis media without spontaneous rupture of ear drum, left ear; J01.90 Acute sinusitis, unspecified; B96.89 Other specified bacterial agents as the cause of diseases classified elsewhere
CPT/HCPCS: 0241U; 99212

== ENCOUNTER 2024-04-11 09:32 | Outpatient (AMB) | payer OTHER, SELFPAY ==
--- NOTE | 2024-04-11 09:59 | MHC.OFFWIV ---
Intake Vital Signs 04/11/24 10:01 Weight 150 lb BP 120/80 Blood Pressure Location Lt brachial Position Sitting Pulse 96 Pulse Source Pulse Oximeter Temp 98.1 F Temp Source Oral Pulse Oximetry (%) 98 Oxygen Delivery Method Room Air Intake Visit Reasons: EP Sinus infection? Intake Note: Patient here for cough, sinus pressure and pain behind eyes and pressure in gums which started Thursday. Patient Tobacco Use Status: Former Tobacco user Allergies Sulfa (Sulfonamide Antibiotics) Allergy (Verified 04/11/24 10:02) Hives Sulfacet-R Allergy (Intermediate, Uncoded 04/11/24 10:02) Hives Do you need a note to return to daycare/school/sports/work: No HPI HPI Comments History of Present Illness Details History - The patient is a 53-year-old female with a history of acute sinus issues, presenting with sinus pressure, green nasal discharge, and related discomfort, having started 5 days prior. - She reports long-standing susceptibility to sinus infections and provides a history of proactive management using Fluticasone Propionate nasal spray. - There is no recent fever or ear pain, though she notes shortness of breath, particularly noticeable when exerting. - The patient has recent influenza vaccination in place and reports the onset of symptoms without fever or additional respiratory distress post-vaccination. - Recently, she was treated for MRSA with Doxycycline following an abscess. Physical Exam General: Cooperative, healthy appearing, comfortable and no acute distress Orientation/consciousness: Patient oriented x3 Limitations: No limitations Head: Normal to inspection Ears: Hearing grossly normal bilaterally, external ears normal and TM's normal left, TM right erythema and purulent effusion Nose: Normal external nose present, Normal nares present and No nasal discharge present Face and sinus: Normal facial exam and Yes sinuses tender Mouth: Normal oral and palatal mucosa present and moist mucous membranes Throat: Yes tonsils normal, Yes uvula midline. Posterior oropharynx erythema Eyes: Appearance normal, both eyes and all related structures Neck: Normal visual inspection Respiratory: Clear to auscultation bilaterally. Normal respiratory effort, able to speak in complete sentences, Actively coughing, no respiratory distress, not tachypneic, no tripod positioning and no use of accessory muscles Cardiovascular: Regular rate and rhythm. Normal S1 and S2 Skin: No rashes or lesions noted Neuro: Patient oriented x3 Extremities: Normal to inspection and Yes no clubbing, cyanosis or edema [facility] Medical History (Updated 04/11/24 @ 10:29 by Evelyn Gonzalez PA-C) Acute bacterial sinusitis Acute bacterial bronchitis Breast cancer screening by mammogram Colon cancer screening Screening for hypothyroidism Left otitis media ZHAO I (cervical intraepithelial neoplasia I) Irritable bowel syndrome Urinary incontinence Allergic rhinitis Insomnia Vitamin D deficiency Bipolar disorder Hypercholesterolemia Hypertension Carpal tunnel syndrome Type 2 diabetes mellitus with hyperglycemia Surgical History H/O tubal ligation H/O: hysterectomy Gastric bypass status for obesity Family History Father Heart attack Maternal Uncle Lung cancer Maternal Aunt Colon cancer Social History Housing: House Alcohol intake: never Patient Tobacco Use Status: Former Tobacco user Tobacco use type: Cigarette Years Smoked: last seen (01/2023) still smoking e-Cigarette/Vaping Use: Never Used service: No Current occupational status: employed Cognitive needs: No Hearing needs: No Vision needs: No Review of Systems Const All systems reviewed & are unremarkable except as noted in HPI and below Physical Exam Vital Signs: Last Vital Signs Temp 98.1 F 04/11/24 10:01 Pulse 96 04/11/24 10:01 BP 120/80 04/11/24 10:01 Pulse Ox 98 04/11/24 10:01 Oxygen Delivery Method Room Air 04/11/24 10:01 Assessment & Plan Assessment & Plan (1) Otitis media: Code(s): H66.90 - Otitis media, unspecified, unspecified ear Qualifiers: Otitis media type: suppurative Chronicity: acute Laterality: left Recurrence: non-recurrent Spontaneous tympanic membrane rupture: without spontaneous rupture Qualified Code(s): H66.002 - Acute suppurative otitis media without spontaneous rupture of ear drum, left ear Plan: This patient will be treated with Amoxicillin-Clavulanate/Augmentin to address the OM and suspected bacterial origin of her sinusitis, with diagnostic tests conducted for influenza, COVID-19, and Respiratory Syncytial Virus RSV owing to symptomatic similarities and seasonal prevalence. Symptom relief will be supported by continued use of Fluticasone Propionate nasal spray and supplemental saline spray. The patient receives a note for work relief to ensure she rests adequately before resuming normal activities. Close monitoring will verify therapeutic efficacy and potentially adapt management should symptoms persist or worsen. Patient was informed and verbally consented to the use of an ambient scribe for clinic note documentation during this visit (2) Acute bacterial sinusitis: Code(s): J01.90 - Acute sinusitis, unspecified; B96.89 - Other specified bacterial agents as the cause of diseases classified elsewhere Plan: as above Orders: Orders SARS-CoV2/FLU/RSV Today J06.9 - Acute upper respiratory infection, unspecified Medications: New amoxicillin-pot clavulanate 875-125 mg 1 tab PO Q12H 14 tabs 0RF Coding Level of Care Code Est Pt Level 4 (05049) Diagnoses Non-recurrent acute suppurative otitis media of left ear without spontaneous rupture of tympanic membrane H66.002 Otitis media type: suppurative Chronicity: acute Laterality: left Recurrence: non-recurrent Spontaneous tympanic membrane rupture: without spontaneous rupture Acute bacterial sinusitis J01.90; B96.89
[2024-04-11 10:01] VITALS: BP 120/80; PULSE 96; TEMP 36.7; O2SAT 98
== END 2024-04-11 10:35 | disposition home or self-care (01) ==
PROVIDERS: PCP Internal Medicine; Visit Provider Physician Assistant
DX: H66.002 Acute suppurative otitis media without spontaneous rupture of ear drum, left ear (principal); J01.90 Acute sinusitis, unspecified; B96.89 Other specified bacterial agents as the cause of diseases classified elsewhere

== ENCOUNTER 2024-08-10 12:38 | Outpatient (AMB) | payer OTHER, SELFPAY ==
--- NOTE | 2024-08-10 12:41 | MHC.PC.OV ---
Vital Signs 08/10/24 12:43 Height 5 ft 4 in Weight 148 lb 2 oz BMI 25.4 BP 124/60 Blood Pressure Location Lt brachial Position Sitting Pulse 84 Pulse Source Pulse Oximeter Temp 97.3 F Temp Source Temporal Artery Scan Pulse Oximetry (%) 96 Oxygen Delivery Method Room Air Intake Visit Reasons: follow up appt Intake Note: Patient is here to follow up on DM, HTN, GERD. Bead Cutter Required: No Imaging Tech: Not Required per policy Accompanied by: Self / Same As Patient Allergies Sulfa (Sulfonamide Antibiotics) Allergy (Verified 08/10/24 12:43) Hives Sulfacet-R Allergy (Intermediate, Uncoded 08/10/24 12:43) Hives Medication List - Last Reconciled 08/10/24 by Althea Singer MD bisacodyl (Dulcolax (bisacodyl)) 20 mg (4 x 5 mg) PO ONCE 1 day blood sugar diagnostic (FreeStyle Lite Strips) As directed check the BS QD blood-glucose meter (FreeStyle Lite Meter kit) As directed bupropion HCl mg PO cholecalciferol (vitamin D3) 50 mcg PO DAILY cyclobenzaprine 5 mg PO TID PRN diclofenac sodium 1% (Voltaren Arthritis Pain) 4 grams topical QID dulaglutide (Trulicity) 0.75 mg (0.5 mL) subcut QWEEK fluticasone propionate 50 mcg/actuation (Flonase Allergy Relief) 2 sprays intranasal DAILY lamotrigine 200 mg PO BID lancets (FreeStyle Lancets) As directed check BS QD melatonin 10 mg PO BEDTIME PRN metformin 1,000 mg PO BID multivitamin (Daily-Emelyn tablet) 1 tab PO DAILY nicotine 1 patch topical DAILY oseltamivir (Tamiflu) 75 mg PO Q12H 5 days pantoprazole 40 mg PO DAILY 90 days polyethylene glycol 3350 (Miralax) 238 grams PO ONCE propranolol 20 mg PO BID zolpidem 10 mg PO BEDTIME PRN Tobacco use date assessed: 08/10/24 Dental Screening Dental Screen Date: 08/10/24 Did you have a dental visit in the last 12 months?: No Did you have a dental problem in the last 6 months where you did not have access to dental care?: No Was dental information given to patient?: No [facility] Medical History (Updated 08/10/24 @ 12:55 by Althea Singer MD) Colon cancer screening Acute bacterial sinusitis Acute bacterial bronchitis Breast cancer screening by mammogram Screening for hypothyroidism Left otitis media ZHAO I (cervical intraepithelial neoplasia I) Irritable bowel syndrome Urinary incontinence Allergic rhinitis Insomnia Vitamin D deficiency Bipolar disorder Hypercholesterolemia Hypertension Carpal tunnel syndrome Type 2 diabetes mellitus with hyperglycemia Surgical History H/O tubal ligation H/O: hysterectomy Gastric bypass status for obesity Family History Father Heart attack Maternal Uncle Lung cancer Maternal Aunt Colon cancer Social History Housing: House Alcohol intake: never Patient Tobacco Use Status: Former Tobacco user Tobacco use type: Cigarette Years Smoked: last seen (01/2023) still smoking e-Cigarette/Vaping Use: Never Used Second Hand Smoke Exposure: Yes service: No Current occupational status: employed Cognitive needs: No Hearing needs: No Vision needs: No Questionnaire PHQ-9 Over the last 2 weeks, how often have you been bothered by any of the following problems? 1. Little interest or pleasure in doing things: more than half the days 2. Feeling down, depressed, or hopeless: more than half the days 3. Trouble falling or staying asleep, or sleeping too much: several days 4. Feeling tired or having little energy: more than half the days 5. Poor appetite or overeating: more than half the days 6. Feeling bad about yourself - or that you are a failure or have let yourself or your family down: not at all 7. Trouble concentrating on things, such as reading the newspaper or watching television: not at all 8. Moving or speaking so slowly that other people could have noticed. Or the opposite - being so fidgety or restless that you have been moving around a lot more than usual: not at all 9. Thoughts that you would be better off or of hurting yourself in some way: not at all Total score: 9 Depression Screening Interpretation: Positive Depression Screening Done: Yes Source: Developed by Drs. Rony Salmon, Sabina LuaEduardo and colleagues, with an educational dannielle from [employer]. Thrive Questionnaire Date Thrive assessed: 08/03/24 I am a: Patient What is your living situation today?: I have a steady place to live Within the past 12 months, did the food you bought not last and you didn't have the money to get more?: Never true Within the past 12 months, did you worry whether your food would run out before you got money to buy more?: Never true Do you have trouble paying for medicines?: No Do you have trouble getting transportation to medical appointments?: No Do you have trouble paying your heating and electricity bill?: Yes Do you have trouble taking care of your child, family member or friend?: Yes Do you have trouble with day-to-day activities such as bathing, preparing meals, shopping, managing finances, etc.?: No Are you currently unemployed and looking for a job?: No Are you interested in more education?: No Please select the resources that you would like help with: Utilities and Care for elder or disabled Currently or been in a relationship where the following occur: I choose not to answer THRIVE Score: 1 AUDIT C Alcohol Use Questionnaire (AUDIT-C) 1. How often do you have a drink containing alcohol?: Monthly or less 2. How many drinks containing alcohol do you have on a typical day when you are drinking?: 1 or 2 3. How often do you have six or more drinks on one occasion?: Less than monthly Total Score: 2 YANNA-7 AMB Questionnaire YANNA-7 Date YANNA - 7 assessed: 08/10/24 Feeling nervous, anxious, or on edge: 1 = Several days Not being able to stop or control worryin = Several days Worrying too much about different things: 2 = More than half the days Trouble relaxin = Several days Being so restless that it is hard to sit still: 1 = Several days Becoming easily annoyed or irritable: 1 = Several days Feeling afraid as if something awful might happen: 1 = Several days Total YANNA-7 score (0-4 normal; 5-9 mild; 10-14 moderate; 15-21 severe): 8 Source: Developed by Drs. Rony Salmon, Eduardo Pizano and colleagues, with an educational dannielle from [employer]. Physical exam (Primary Care) Vital Signs: Last Vital Signs Temp 97.3 F 08/10/24 12:43 Pulse 84 08/10/24 12:43 BP 124/60 08/10/24 12:43 Pulse Ox 96 08/10/24 12:43 Oxygen Delivery Method Room Air 08/10/24 12:43 BMI result Body Mass Index 25.4 Tobacco/Smoking Status: Tobacco use Status Tobacco use date assessed 08/10/24 08/10/24 12:51 Patient Tobacco Use Status Former Tobacco user 08/10/24 12:42 Tobacco use type Cigarette 08/10/24 12:42 e-Cigarette/Vaping Use Never Used 08/10/24 12:42 PHQ-9: PHQ-9 Score PHQ-9: Total score 9 08/10/24 13:13 Depression Screening Interpretation: Positive Thrive Assessment: Date of Thrive Assessment Date Thrive assessed 08/03/24 08/10/24 12:42 Currently or been in a relationship where the following occur: I choose not to answer Const General: alert; No acute distress Eyes Conjunctivae: conjunctivae normal Resp Auscultation: clear to auscultation bilaterally Cardio Rate: regular rate Rhythm: regular rhythm GI Inspection: Yes normal to inspection Extrem General: Yes normal to inspection and No edema Results AMB Hemoglobin A1c AMB Hemoglobin A1c 8.4 % Last Edit by CRISTIAN Parnell on 08/10/24 12:54 Results Reviewed Results Reviewed: Laboratory Last Values Hgb A1c (Clinic) 8.4 % (4.0-6.0) H 08/10/24 12:42 Coding Level of Care Code Est Pt Level 4 (71352) Complex EM visit Add On G2211 Diagnoses Type 2 diabetes mellitus with hyperglycemia, without long-term current use of insulin E11.65 Diabetes mellitus custodial insulin use: without custodial use Essential hypertension I10 Hypertension type: essential hypertension Hypercholesterolemia E78.00 Bipolar disorder, current episode mixed, moderate F31.62 Active/Remission status: currently active Current bipolar episode type: mixed Current episode severity: moderate Gastric bypass status for obesity Z98.84 Gastroesophageal reflux disease, unspecified whether esophagitis present K21.9 Esophagitis presence: esophagitis presence not specified Breast cancer screening by mammogram Z12.31 Colon cancer screening Z12.11 Assessment & Plan Assessment & Plan (1) Type 2 diabetes mellitus with hyperglycemia: Code(s): E11.65 - Type 2 diabetes mellitus with hyperglycemia Category: Medical Qualifiers: 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 Hemoglobin A1c goal of less than 6.5 patient on Trulicity 0.75 mg once a week metformin a 1000 mg twice a day (2) Hypertension: Code(s): I10 - Essential (primary) hypertension Category: Medical Qualifiers: Hypertension type: essential hypertension Qualified Code(s): I10 - Essential (primary) hypertension Plan: Continue with blood pressure medication. Decrease salt intake and exercise patient takes propranolol 20 mg twice a day (3) Hypercholesterolemia: Code(s): E78.00 - Pure hypercholesterolemia, unspecified Category: Medical Plan: Avoid fried foods, chicken skin, eggs, butter margarine, pastries and meat. Be it pork or beef they have a lot of cholesterol LDL goal of less than 100 and triglyceride of less than 150 patient needs to have the blood work done (4) Bipolar disorder: Comment: Yonas Salvador Code(s): F31.9 - Bipolar disorder, unspecified Category: Medical Qualifiers: Active/Remission status: currently active Current bipolar episode type: mixed Current episode severity: moderate Qualified Code(s): F31.62 - Bipolar disorder, current episode mixed, moderate Plan: Patient needs to follow-up with counseling and therapy on lamotrigine (5) Gastric bypass status for obesity: Comment: Laparoscopic Luca-en-Y Dr. Holliday April 2016 Code(s): Z98.84 - Bariatric surgery status Category: Surgical Plan: Continue to follow-up with bariatric (6) GERD (gastroesophageal reflux disease): Code(s): K21.9 - Gastro-esophageal reflux disease without esophagitis Category: Medical Qualifiers: Esophagitis presence: esophagitis presence not specified Qualified Code(s): K21.9 - Gastro-esophageal reflux disease without esophagitis Plan: Avoid the foods that causes that usually spicy foods, tomato products, juices, coffee, soda and foods that your sensitive to. After eating do not lie down, allow 3-4 hours before in lie down. And keep the head of bed above 30 degrees to avoid the acid from going up. (7) Breast cancer screening by mammogram: Code(s): Z12.31 - Encounter for screening mammogram for malignant neoplasm of breast Category: Medical Plan: Patient is reminded about mammogram (8) Colon cancer screening: Code(s): Z12.11 - Encounter for screening for malignant neoplasm of colon Category: Medical Plan: Patient is reminded about colon cancer screening Plan History of Present Illness The patient is a 53-year-old female presenting with a follow-up for her Type 2 Diabetes Mellitus management. Her diabetes has been suboptimally controlled, evidenced by a recent A1c of 8.4%, and a previous A1c of 8.0% in August 2023. This reflects ongoing challenges in achieving her target glycemic control. Diabetes management has been difficult due to insurance constraints impacting access to medications such as Trulicity, which she has been off for some time, relying on Metformin. She also has hypercholesterolemia with a last recorded LDL cholesterol level of 107, not yet meeting her goal of less than 100. The patient discusses the high cost of medications and challenges with insurance coverage, impacting her ability to manage her conditions effectively. Her medical history includes an episode of an MRSA neck infection following a flu diagnosis in January 2024. She was discharged on Doxycycline for the MRSA. Earlier, she was treated for a sinus infection with Augmentin. There is mention of occasional symptoms of vertigo, for which the patient has requested Meclizine. She also reports smoking regularly but has been using nicotine patches to aid cessation efforts, although inconsistently. Health Maintenance - Mammogram and colonoscopy screenings are due. - Blood work in November 2023 indicated normal blood count but noted microcytosis; electrolytes were normal. - LDL cholesterol level was 107 in November 2023. - Hemoglobin A1c was 8.0 in August 2023; goal discussed was less than 6.5%. - Emphasis on smoking cessation with nicotine patches. - Encouraged increased physical activity such as joining a gym [email or web address] membership mentioned). Social History - Smoker, currently attempting cessation with nicotine patches. - Lives with her elderly mother who requires care. - Leg discomfort is noted, possibly affecting mobility. - Dietary habits include rice and salad, inconsistent with ideal diabetes management. Review of Systems - Cardiovascular: Reports elevated cholesterol. Denies other symptoms. - Endocrine: Reports elevated blood glucose levels; Denies new symptom onset. - Integumentary: Reports history of MRSA wound on neck. - Neurological: Reports occasional vertigo. - Psychiatric: Reports mood disturbances; positive history of bipolar disorder. Physical Exam Results - Labs: Hemoglobin A1c 8.4% recently, prior A1c 8.0% (August 2023) - Labs: LDL 107 (November 2023) - Imaging/Screening: Mammogram and colonoscopy pending Plan 1. 75 mg weekly and reinforced the use of Metformin 1000 mg twice daily towards achieving an A1c goal of less than 6.5%. Discussion included the importance of controlling her LDL cholesterol levels to below 100, highlighting past values, and emphasizing adherence to lipid-lowering therapy. Continuation of lifestyle modifications, including physical activity and dietary changes, was advised. Nicotine patches are recommended at the middle dose with the cessation of smoking as an essential goal. Screening procedures, including a mammogram and colonoscopy, are overdue and advised to be completed. I have also prescribed Meclizine for vertigo management, warning her of potential drowsiness. We will follow up in three months to assess intervention outcomes and any necessary adjustments to her management plan.: Patient was informed and verbally consented to the use of an ambient scribe for clinic note documentation during this visit. Discussion Notes I discussed with the patient the importance of reaching her glycemic targets and lowering her cardiovascular risk through medication optimization with Trulicity and Metformin. We reviewed her challenges with medication access, including her LDL cholesterol levels that remain above recommended levels, reaffirming the importance of lifestyle modification and adherence to medication. We talked about the sensitivity of combining nicotine patch usage while striving for smoking cessation, stressing the need to avoid concurrent smoking to maximize treatment efficacy. Consent for Meclizine was obtained after discussing its side effects. An outline of required health maintenance screenings was provided. Follow-ups were scheduled in three months to assess improvement and adherence to prescribed therapies. Patient Instructions - Restart Trulicity at 0.75 mg weekly as prescribed. - Continue taking Metformin 1000 mg twice daily. - Complete fasting blood work as recommended. - Schedule and complete mammogram and colonoscopy. - Continue smoking cessation efforts using nicotine patches. - Exercise regularly; utilize [employer] membership. - Take Meclizine for vertigo as needed, with caution for drowsiness. - Follow a consistent low-sugar, balanced diet. - Return for follow-up in three months. - Seek medical attention if unusual symptoms, swelling, or severe side effects occur. Orders: Orders AMB Hemoglobin A1c Today E11.65 - Type 2 diabetes mellitus with hyperglycemia Comprehensive Met. Panel Today E11.65 - Type 2 diabetes mellitus with hyperglycemia Thyroid Stimulating Hormone Today E11.65 - Type 2 diabetes mellitus with hyperglycemia Lipid Panel Today E11.65 - Type 2 diabetes mellitus with hyperglycemia, E78.00 - Pure hypercholesterolemia, unspecified Microalbumin, Random (w Creat) Today E11.65 - Type 2 diabetes mellitus with hyperglycemia Creatinine Urine Today E11.65 - Type 2 diabetes mellitus with hyperglycemia MM tomosynthesis screening BI Today Z12.31 - Encounter for screening mammogram for malignant neoplasm of breast Complete Blood Count Auto Diff Today E11.65 - Type 2 diabetes mellitus with hyperglycemia Free T4 (Free Thyroxine) Today E11.65 - Type 2 diabetes mellitus with hyperglycemia Hemoglobin A1c Today E11.65 - Type 2 diabetes mellitus with hyperglycemia Vitamin B12 and Folate Today E11.65 - Type 2 diabetes mellitus with hyperglycemia Vitamin D 25-OH Total Today E11.65 - Type 2 diabetes mellitus with hyperglycemia Referrals Gastroenterology Referral Z12.11 - Encounter for screening for malignant neoplasm of colon Medications: New meclizine 25 mg PO BID PRN 30 tabs 0RF dizziness E11.65 - Type 2 diabetes mellitus with hyperglycemia nicotine 1 patch transdermal DAILY 28 ea 1RF meclizine 25 mg PO BID PRN 30 tabs 0RF dizziness E11.65 - Type 2 diabetes mellitus with hyperglycemia Refilled dulaglutide (Trulicity) 0.75 mg (0.5 mL) subcut QWEEK 2 mL 5RF E11.65 - Type 2 diabetes mellitus with hyperglycemia Discontinued oseltamivir (Tamiflu) Discontinued Reason: Duplicate 75 mg PO Q12H 5 days 10 caps 0RF
[2024-08-10 12:43] VITALS: BP 124/60; PULSE 84; TEMP 36.3; O2SAT 96; BMI 25.4
== END 2024-08-10 13:17 | disposition home or self-care (01) ==
LOC: HO.HMCH 12:39
PROVIDERS: PCP Internal Medicine; Visit Provider Internal Medicine
DX: E11.65 Type 2 diabetes mellitus with hyperglycemia (principal); I10 Essential (primary) hypertension; E78.00 Pure hypercholesterolemia, unspecified; F31.62 Bipolar disorder, current episode mixed, moderate; Z98.84 Bariatric surgery status; K21.9 Gastro-esophageal reflux disease without esophagitis; Z12.31 Encounter for screening mammogram for malignant neoplasm of breast; Z12.11 Encounter for screening for malignant neoplasm of colon

== ENCOUNTER → 2024-08-10 12:38 | Outpatient (BNVA) | payer OTHER, SELFPAY | PROVIDERS: PCP Internal Medicine; Visit Provider Internal Medicine | DX: E11.65 Type 2 diabetes mellitus with hyperglycemia (principal); I10 Essential (primary) hypertension; K21.9 Gastro-esophageal reflux disease without esophagitis; E78.00 Pure hypercholesterolemia, unspecified; F31.62 Bipolar disorder, current episode mixed, moderate; Z98.84 Bariatric surgery status | CPT/HCPCS: 83036; 99212 ==

== ENCOUNTER 2024-11-01 06:03 | Outpatient (REF) | payer OTHER, SELFPAY ==
[2024-11-01 07:52] LABS: Hemoglobin A1C 196.1435 umol/L; Total Hemoglobin (HGBA1C) 2919.4738 umol/L
[2024-11-01 08:04] LABS: Alanine Aminotransferase 15 U/L (0-31); Albumin Level 4.1 g/dL (3.5-5.0); Alkaline Phosphatase 81 U/L (39-117); Anion Gap 12 (12-20); Aspartate Amino Transferase 22 U/L (5-31); Blood Urea Nitrogen 7 mg/dL (9-16); Calcium 9.2 mg/dL (8.4-10.2); Carbon Dioxide 27 mmol/L (22-29); Chloride 105 mmol/L (96-108); Cholesterol 177 mg/dL (<200); Estimated Glomerular Filt Rate > 60; HDL Cholesterol 55 mg/dL (>40); Potassium 4.2 mmol/L (3.3-5.1); Sodium 140 mmol/L (135-145); Total Protein 7.0 g/dL (6.5-8.0); Triglycerides 173 mg/dL (<150)
== END 2024-11-01 06:04 | disposition home or self-care (01) ==
LOC: HO.LAB 06:03
PROVIDERS: PCP Internal Medicine; Visit Provider Nurse Practitioner Psychiatric/Mental Health
DX: Z79.899 Other long term (current) drug therapy (principal)
CPT/HCPCS: 36415; 80053; 80061; 83036

== ENCOUNTER 2024-12-05 06:07 | Outpatient (REF) | payer OTHER, SELFPAY ==
[2024-12-05 07:35] LABS: Hematocrit 34.1 % (37.0-47.0); Hemoglobin 11.0 g/dl (12.0-16.0); Imm Gran Abs Auto 0.01 X10*3/uL (0.00-0.03); Imm Gran Pct Auto 0.2 % (0.0-0.4); Lymphocytes Absolute Auto 2.4 X10*3/uL (1.2-4.9); Mean Corpuscular HGB Conc 32.3 g/dl (31.0-35.0); Mean Corpuscular Hemoglobin 24.0 pg (27.0-33.0); Mean Corpuscular Volume 74.3 fL (80.0-98.0); NRBC Abs Auto 0.000 X10*3/uL (0.0-0.012); NRBC Pct Auto 0.0 /100WBC (0.0-0.2); Red Blood Count 4.59 X10*6/uL (4.20-5.50)
[2024-12-05 07:38] LABS: Platelet Count 288 X10*3/uL (160-400); White Blood Count 6.6 X10*3/uL (4.8-10.8)
[2024-12-05 08:01] LABS: Microalbum/Creatinine Ratio Ur 8.7 ug/mg cr (<30)
[2024-12-05 08:02] LABS: Alanine Aminotransferase 19 U/L (0-31); Albumin Level 4.1 g/dL (3.5-5.0); Alkaline Phosphatase 77 U/L (39-117); Anion Gap 12 (12-20); Aspartate Amino Transferase 26 U/L (5-31); Blood Urea Nitrogen 7 mg/dL (9-16); Calcium 9.3 mg/dL (8.4-10.2); Carbon Dioxide 26 mmol/L (22-29); Chloride 106 mmol/L (96-108); Cholesterol 169 mg/dL (<200); Estimated Glomerular Filt Rate > 60; HDL Cholesterol 53 mg/dL (>40); Potassium 4.9 mmol/L (3.3-5.1); Sodium 139 mmol/L (135-145); Total Protein 7.0 g/dL (6.5-8.0); Triglycerides 92 mg/dL (<150)
[2024-12-05 08:25] LABS: Free T4 (Free Thyroxine) 0.98 ng/dL (0.71-1.85); Thyroid Stimulating Hormone 1.96 uIU/mL (0.32-4.0)
[2024-12-05 08:28] LABS: Folate 16.2 ng/mL (> or = 4.0); Vitamin B12 361 pg/mL (200-900)
== END 2024-12-05 06:08 | disposition home or self-care (01) ==
LOC: HO.LAB 06:07
PROVIDERS: PCP Internal Medicine; Visit Provider Internal Medicine
DX: E11.65 Type 2 diabetes mellitus with hyperglycemia (principal); E78.00 Pure hypercholesterolemia, unspecified; I10 Essential (primary) hypertension; F31.62 Bipolar disorder, current episode mixed, moderate; K21.9 Gastro-esophageal reflux disease without esophagitis; D64.9 Anemia, unspecified; Z98.84 Bariatric surgery status
CPT/HCPCS: 36415; 80053; 80061; 82043; 82306; 82570; 82607; 82746; 83036; 84439; 84443; 85025; 99212

== ENCOUNTER 2024-12-05 17:05 | Outpatient (AMB) | payer OTHER, SELFPAY ==
[2024-12-05 17:09] VITALS: BP 114/68; PULSE 84; O2SAT 98; BMI 24.9
--- NOTE | 2024-12-05 17:09 | A.OFFPC_ITS ---
Vital Signs 12/05/24 17:09 Height 5 ft 4 in Weight 145 lb BMI 24.9 BP 114/68 Blood Pressure Location Lt brachial Position Sitting Pulse 84 Pulse Source Pulse Oximeter Pulse Oximetry (%) 98 Oxygen Delivery Method Room Air Intake Visit Reasons: DM Allergies Sulfa (Sulfonamide Antibiotics) Allergy (Verified 12/05/24 17:09) Hives Sulfacet-R Allergy (Intermediate, Uncoded 12/05/24 17:09) Hives Medication List - Last Reconciled 12/05/24 by Althea Singer MD bisacodyl (Dulcolax (bisacodyl)) 20 mg (4 x 5 mg) PO ONCE 1 day blood sugar diagnostic (FreeStyle Lite Strips) As directed check the BS QD blood-glucose meter (FreeStyle Lite Meter kit) As directed bupropion HCl mg PO cholecalciferol (vitamin D3) 50 mcg PO DAILY cyclobenzaprine 5 mg PO TID PRN diclofenac sodium 1% (Voltaren Arthritis Pain) 4 grams topical QID dulaglutide 1.5 mg (0.5 mL) subcut QWEEK fluticasone propionate 50 mcg/actuation (Flonase Allergy Relief) 2 sprays intranasal DAILY gabapentin 100 mg PO BEDTIME lamotrigine 200 mg PO BID lancets (FreeStyle Lancets) As directed check BS QD meclizine 25 mg PO BID PRN melatonin 10 mg PO BEDTIME PRN metformin 1,000 mg PO BID multivitamin (Daily-Emelyn tablet) 1 tab PO DAILY nicotine 1 patch transdermal DAILY pantoprazole 40 mg PO DAILY 90 days polyethylene glycol 3350 (Miralax) 238 grams PO ONCE propranolol 20 mg PO BID zolpidem 10 mg PO BEDTIME PRN Tobacco use date assessed: 08/10/24 Dental Screening Dental Screen Date: 08/10/24 [facility] Medical History (Updated 12/05/24 @ 17:25 by Althea Singer MD) Colon cancer screening Acute bacterial sinusitis Acute bacterial bronchitis Breast cancer screening by mammogram Screening for hypothyroidism Left otitis media ZHAO I (cervical intraepithelial neoplasia I) Irritable bowel syndrome Urinary incontinence Allergic rhinitis Insomnia Vitamin D deficiency Bipolar disorder Hypercholesterolemia Hypertension Carpal tunnel syndrome Type 2 diabetes mellitus with hyperglycemia Surgical History H/O tubal ligation H/O: hysterectomy Gastric bypass status for obesity Family History Father Heart attack Maternal Uncle Lung cancer Maternal Aunt Colon cancer Social History Housing: House Alcohol intake: never Patient Tobacco Use Status: Former Tobacco user Tobacco use type: Cigarette Years Smoked: last seen (01/2023) still smoking e-Cigarette/Vaping Use: Never Used Second Hand Smoke Exposure: Yes service: No Current occupational status: employed Cognitive needs: No Hearing needs: No Vision needs: No Questionnaire PHQ-9 Over the last 2 weeks, how often have you been bothered by any of the following problems? 1. Little interest or pleasure in doing things: more than half the days 2. Feeling down, depressed, or hopeless: more than half the days 3. Trouble falling or staying asleep, or sleeping too much: several days 4. Feeling tired or having little energy: more than half the days 5. Poor appetite or overeating: more than half the days 6. Feeling bad about yourself - or that you are a failure or have let yourself or your family down: not at all 7. Trouble concentrating on things, such as reading the newspaper or watching television: not at all 8. Moving or speaking so slowly that other people could have noticed. Or the opposite - being so fidgety or restless that you have been moving around a lot more than usual: not at all 9. Thoughts that you would be better off or of hurting yourself in some way: not at all Total score: 9 Depression Screening Interpretation: Positive Depression Screening Done: Yes Source: Developed by Drs. Rony Salmon, Sabina Lua, Eduardo Naylor and colleagues, with an educational dannielle from [employer]. Thrive Questionnaire Date Thrive assessed: 08/03/24 I am a: Patient What is your living situation today?: I have a steady place to live Within the past 12 months, did the food you bought not last and you didn't have the money to get more?: Never true Within the past 12 months, did you worry whether your food would run out before you got money to buy more?: Never true Do you have trouble paying for medicines?: No Do you have trouble getting transportation to medical appointments?: No Do you have trouble paying your heating and electricity bill?: Yes Do you have trouble taking care of your child, family member or friend?: Yes Do you have trouble with day-to-day activities such as bathing, preparing meals, shopping, managing finances, etc.?: No Are you currently unemployed and looking for a job?: No Are you interested in more education?: No Currently or been in a relationship where the following occur: I choose not to answer THRIVE Score: 1 AUDIT C Alcohol Use Questionnaire (AUDIT-C) 1. How often do you have a drink containing alcohol?: Monthly or less 2. How many drinks containing alcohol do you have on a typical day when you are drinking?: 1 or 2 3. How often do you have six or more drinks on one occasion?: Less than monthly Total Score: 2 YANNA-7 AMB Questionnaire YANNA-7 Date YANNA - 7 assessed: 08/10/24 Source: Developed by Drs. Rony Salmon, Sabina Lua, Eduardo Naylor and colleagues, with an educational dannielle from [employer]. Physical exam (Primary Care) Vital Signs: Last Vital Signs Pulse 84 12/05/24 17:09 BP 114/68 12/05/24 17:09 Pulse Ox 98 12/05/24 17:09 Oxygen Delivery Method Room Air 12/05/24 17:09 BMI result Body Mass Index 24.9 Tobacco/Smoking Status: Tobacco use Status Tobacco use date assessed 08/10/24 12/05/24 17:12 Patient Tobacco Use Status Former Tobacco user 12/05/24 17:12 Tobacco use type Cigarette 12/05/24 17:12 e-Cigarette/Vaping Use Never Used 12/05/24 17:12 PHQ-9: PHQ-9 Score PHQ-9: Total score 9 12/05/24 17:12 Depression Screening Interpretation: Positive Thrive Assessment: Date of Thrive Assessment Date Thrive assessed 08/03/24 12/05/24 17:12 Currently or been in a relationship where the following occur: I choose not to answer Const General: alert; No acute distress Eyes Conjunctivae: conjunctivae normal Resp Auscultation: clear to auscultation bilaterally Cardio Rate: regular rate Rhythm: regular rhythm GI Inspection: Yes normal to inspection Extrem General: Yes normal to inspection and No edema Coding Level of Care Code Est Pt Level 4 (25221) Complex EM visit Add On G2211 Diagnoses Type 2 diabetes mellitus with hyperglycemia, without long-term current use of insulin E11.65 Diabetes mellitus retirement insulin use: without oil heaterman use Essential hypertension I10 Hypertension type: essential hypertension Hypercholesterolemia E78.00 Gastric bypass status for obesity Z98.84 Bipolar disorder, current episode mixed, moderate F31.62 Active/Remission status: currently active Current bipolar episode type: mixed Current episode severity: moderate Gastroesophageal reflux disease, unspecified whether esophagitis present K21.9 Esophagitis presence: esophagitis presence not specified Colon cancer screening Z12.11 Breast cancer screening by mammogram Z12.31 Anemia D64.9 Assessment & Plan Assessment & Plan (1) Type 2 diabetes mellitus with hyperglycemia: Code(s): E11.65 - Type 2 diabetes mellitus with hyperglycemia Category: Medical Qualifiers: Diabetes mellitus oil heaterman insulin use: without retirement use Qualified Code(s): E11.65 - Type 2 diabetes mellitus with hyperglycemia Plan: Decrease the amount of carbohydrate intake, pasta, bread, rice and potatoes are all sugar and that is aside from all the sweet stuff, remember that fruits are good but they are Sweet also. Hemoglobin A1c goal of less than 6.5. Patient on Trulicity 0.75 once a week metformin a 1000 mg twice a day (2) Hypertension: Code(s): I10 - Essential (primary) hypertension Category: Medical Qualifiers: Hypertension type: essential hypertension Qualified Code(s): I10 - Essential (primary) hypertension Plan: Continue with blood pressure medication. Decrease salt intake and exercise on propranolol 20 mg twice a day (3) Hypercholesterolemia: Code(s): E78.00 - Pure hypercholesterolemia, unspecified Category: Medical Plan: Avoid fried foods, chicken skin, eggs, butter margarine, pastries and meat. Be it pork or beef they have a lot of cholesterol LDL goal of less than 100 and triglyceride of less than 150 (4) Gastric bypass status for obesity: Comment: Laparoscopic [facility]a-[facility]-Y Dr. Holliday April 2016 Code(s): Z98.84 - Bariatric surgery status Category: Surgical Plan: Continue to follow-up with bariatrics (5) Bipolar disorder: Comment: Yonas Salvador Code(s): F31.9 - Bipolar disorder, unspecified Category: Medical Qualifiers: Active/Remission status: currently active Current bipolar episode type: mixed Current episode severity: moderate Qualified Code(s): F31.62 - Bipolar disorder, current episode mixed, moderate Plan: Continue with present medication (6) GERD (gastroesophageal reflux disease): Code(s): K21.9 - Gastro-esophageal reflux disease without esophagitis Category: Medical Qualifiers: Esophagitis presence: esophagitis presence not specified Qualified Code(s): K21.9 - Gastro-esophageal reflux disease without esophagitis Plan: Avoid the foods that causes that usually spicy foods, tomato products, juices, coffee, soda and foods that your sensitive to. After eating do not lie down, allow 3-4 hours before in lie down. And keep the head of bed above 30 degrees to avoid the acid from going up. (7) Colon cancer screening: Code(s): Z12.11 - Encounter for screening for malignant neoplasm of colon Category: Medical Plan: Reminded about colonoscopy (8) Breast cancer screening by mammogram: Code(s): Z12.31 - Encounter for screening mammogram for malignant neoplasm of breast Category: Medical Plan: Patient is reminded about mammogram (9) Anemia: Code(s): D64.9 - Anemia, unspecified Category: Medical Plan History of Present Illness The patient is a 54-year-old female presenting for a follow-up visit to manage her chronic conditions and address preventative care needs. She has a history of diabetes mellitus, with a recent hemoglobin A1c level of 8.3, indicating poor glycemic control. Her diabetes management includes Trulicity and metformin, with plans to increase the Trulicity dose due to suboptimal control. The patient also has hypertension, managed with propranolol, and hypercholester olemia, with an LDL level of 98 mg/dL. Her cholesterol management goal is to maintain LDL levels below 100 mg/dL and triglycerides below 150 mg/dL. She has a history of bipolar disorder and gastroesophageal reflux disease (GERD), with ongoing management for both conditions. The patient reports anemia, characterized as microcytic, with normal white blood cell and platelet counts. Iron studies are planned to further evaluate the anemia. She has a history of smoking and is currently experiencing symptoms of cataracts, with a consultation scheduled for further evaluation. Preventative care measures include a colonoscopy and mammogram, both of which are due. Health Maintenance - Colonoscopy is due for colorectal cancer screening. - Mammogram is due for breast cancer screening. - Patient is advised to get a flu shot. - Patient is advised to verify if she has received both doses of the shingles vaccine. Social History - History of smoking. Review of Systems - Hematologic: Reports anemia. - Endocrine: Reports poorly controlled diabetes mellitus with hemoglobin A1c of 8.3. - Cardiovascular: Denies chest pain or palpitations. - Respiratory: Denies cough or dyspnea. - Gastrointestinal: Reports gastroesophageal reflux disease (GERD). - Neurological: Reports pins and needles sensation in legs and toes. - Ophthalmologic: Reports cataracts in the right eye. Physical Exam Results - Labs: Hemoglobin A1c is 8.3, indicating poor glycemic control. - Labs: Microcytic anemia with normal white blood cell and platelet counts. - Labs: LDL cholesterol level is 98 mg/dL. - Labs: Vitamin D is low. Plan Patient was informed and verbally consented to the use of an ambient scribe for clinic note documentation during this visit. 1. Diabetes Mellitus The patient's diabetes mellitus is currently poorly controlled, with a hemoglobin A1c of 8.3. The management plan includes increasing the dose of Trulicity from 0.75 mg to 1.5 mg weekly and continuing metformin 1000 mg twice daily. The goal is to achieve a hemoglobin A1c of less than 6.5. 2. Hypertension The patient's hypertension is managed with propranolol 20 mg twice daily. 3. Hypercholesterolemia The patient's LDL cholesterol level is 98 mg/dL, which is within the target range. The management goal is to maintain LDL levels below 100 mg/dL and triglycerides below 150 mg/dL. 4. Anemia The patient has microcytic anemia with normal white blood cell and platelet counts. Iron studies are planned to further evaluate the cause of anemia. 5. Cataracts The patient reports cataracts in the right eye and has a consultation scheduled for further evaluation. 6. Preventative Care The patient is due for a colonoscopy and mammogram as part of her preventative care measures. She is advised to get a flu shot and verify if she has received both doses of the shingles vaccine. Discussion Notes During the visit, we discussed the patient's diabetes management, emphasizing the need to improve glycemic control by increasing the Trulicity dose. We also reviewed her hypertension and hypercholesterolemia management, ensuring her LDL levels remain within target. Preventative care measures, including the need for a colonoscopy and mammogram, were highlighted, along with the importance of vaccinations such as the flu and shingles vaccines. Patient Instructions - Increase Trulicity dose to 1.5 mg weekly. - Continue metformin 1000 mg twice daily. - Schedule and complete a colonoscopy and mammogram. - Get a flu shot and verify shingles vaccination status. - Follow up with ophthalmology for cataract evaluation. Orders: Orders Complete Blood Count Auto Diff 3 Months D64.9 - Anemia, unspecified Vitamin B12 and Folate Today D64.9 - Anemia, unspecified Comprehensive Met. Panel 3 Months D64.9 - Anemia, unspecified Ferritin Today D64.9 - Anemia, unspecified Reticulocyte Count Today D64.9 - Anemia, unspecified IRON PROFILE Today D64.9 - Anemia, unspecified Hemoglobin A1c Today D64.9 - Anemia, unspecified Referrals Gastroenterology Referral D64.9 - Anemia, unspecified, Z12.11 - Encounter for screening for malignant neoplasm of colon Medications: New gabapentin 100 mg PO BEDTIME 30 caps 3RF G62.9 - Polyneuropathy, unspecified Changed From dulaglutide (Trulicity) 0.75 mg (0.5 mL) subcut QWEEK 2 mL 5RF E11.65 - Type 2 diabetes mellitus with hyperglycemia To dulaglutide 1.5 mg (0.5 mL) subcut QWEEK 2 mL 5RF E11.65 - Type 2 diabetes mellitus with hyperglycemia Refilled cholecalciferol (vitamin D3) 50 mcg PO DAILY 90 tabs 0RF R79.89 - Other specified abnormal findings of blood chemistry
== END 2024-12-05 17:34 | disposition home or self-care (01) ==
LOC: HO.HMCH 17:06
PROVIDERS: PCP Internal Medicine; Visit Provider Internal Medicine
DX: E11.65 Type 2 diabetes mellitus with hyperglycemia (principal); I10 Essential (primary) hypertension; F31.62 Bipolar disorder, current episode mixed, moderate; E78.00 Pure hypercholesterolemia, unspecified; Z98.84 Bariatric surgery status; K21.9 Gastro-esophageal reflux disease without esophagitis; Z12.11 Encounter for screening for malignant neoplasm of colon; Z12.31 Encounter for screening mammogram for malignant neoplasm of breast; D64.9 Anemia, unspecified

== ENCOUNTER 2024-12-13 07:34 | Outpatient (REF) | payer OTHER, SELFPAY ==
[2024-12-13 12:52] LABS: Chlamydia pneumoniae PCR Not Detected (Not Detect.); Coronavirus 229E PCR Not Detected (Not Detect.); Coronavirus HKU1 PCR Not Detected (Not Detect.); Coronavirus NL63 PCR Not Detected (Not Detect.); Coronavirus OC43 PCR Not Detected (Not Detect.); RSV PCR Not Detected (Not Detect.); Rhino/Enterovirus PCR Not Detected (Not Detect.)
[2024-12-13 13:02] LABS: Influenza A H1 PCR Not Detected (Not Detect.); Influenza A H1-2009 PCR Not Detected (Not Detect.); Influenza A H3 PCR Not Detected (Not Detect.); SARS-CoV-2 PCR Detected (Not Detect.)
== END 2024-12-13 07:35 | disposition home or self-care (01) ==
LOC: HO.LNP 07:34
PROVIDERS: PCP Internal Medicine; Visit Provider Physician Assistant Medical
DX: R09.81 Nasal congestion (principal); R06.02 Shortness of breath; R05.9 Cough, unspecified; H92.09 Otalgia, unspecified ear; M79.10 Myalgia, unspecified site; J34.89 Other specified disorders of nose and nasal sinuses
CPT/HCPCS: 87633; 99212

== ENCOUNTER 2024-12-13 07:34 | Outpatient (AMB) | payer OTHER, SELFPAY ==
[2024-12-13 07:44] VITALS: BP 110/64; PULSE 88; RESP 16; TEMP 36.6; O2SAT 100; BMI 24.7
--- NOTE | 2024-12-13 07:44 | MHC.OFFWIV ---
Intake Vital Signs 12/13/24 07:44 Height 5 ft 4 in Weight 144 lb BMI 24.7 BP 110/64 Blood Pressure Location Lt brachial Position Sitting Respiration 16 Pulse 88 Temp 97.9 F Temp Source Oral Pulse Oximetry (%) 100 Oxygen Delivery Method Room Air Intake Visit Reasons: ep ear infection chest congested exposed to covid Intake Note: Pt is here today c/o sinus congestion and chest, coughing, chills x3days: Co-worker has COVID Patient Tobacco Use Status: Former Tobacco user Allergies Sulfa (Sulfonamide Antibiotics) Allergy (Verified 12/13/24 07:44) Hives Sulfacet-R Allergy (Intermediate, Uncoded 12/13/24 07:44) Hives HPI HPI Comments History of Present Illness Details History - The patient is a 54-year-old female presenting with sinus pain, earache, and body aches following exposure to a COVID-19 positive individual. - She has severe sinus pain and pressure began late Thursday night, persisting since Thursday. - She has a cough and she has phlegm when she coughs. - She has sinus pain and pressure and pressure in the ears. - Exposure to a COVID-19 positive individual at work, with subsequent body aches and mild shortness of breath. - She denies fever, chills, FERNANDEZ, CP, SOB, abd pain, n/v/d. Physical Exam General: Cooperative, healthy appearing, comfortable and no acute distress Orientation/consciousness: Patient oriented x3 Limitations: No limitations Head: Normal to inspection Ears: Hearing grossly normal bilaterally, external ears normal and TM's normal bilaterally Nose: Normal external nose present, normal nares present, and no nasal discharge present. Face and sinus: Sinuses tender to palpation. Mouth: Normal oral and palatal mucosa present and moist mucous membranes noted. Throat: Tonsils normal. Uvula is midline. Posterior oropharynx with erythema and no exudates. Eyes: Appearance normal, both eyes and all related structures Neck: Normal visual inspection, full ROM. No lymphadenopathy noted. Respiratory: Clear to auscultation bilaterally. Normal respiratory effort, able to speak in complete sentences. No respiratory distress, not tachypneic, no tripod positioning and no use of accessory muscles. Cardiovascular: Regular rate and rhythm. Normal S1 and S2 Skin: No rashes or lesions noted Patient was informed and verbally consented to the use of an ambient scribe for clinic note documentation during this visit [facility] Medical History (Updated 12/05/24 @ 17:25 by Althea Singer MD) Colon cancer screening Acute bacterial sinusitis Acute bacterial bronchitis Breast cancer screening by mammogram Screening for hypothyroidism Left otitis media ZHAO I (cervical intraepithelial neoplasia I) Irritable bowel syndrome Urinary incontinence Allergic rhinitis Insomnia Vitamin D deficiency Bipolar disorder Hypercholesterolemia Hypertension Carpal tunnel syndrome Type 2 diabetes mellitus with hyperglycemia Surgical History H/O tubal ligation H/O: hysterectomy Gastric bypass status for obesity Family History Father Heart attack Maternal Uncle Lung cancer Maternal Aunt Colon cancer Social History Housing: House Alcohol intake: never Patient Tobacco Use Status: Former Tobacco user Tobacco use type: Cigarette Years Smoked: last seen (01/2023) still smoking e-Cigarette/Vaping Use: Never Used Second Hand Smoke Exposure: Yes service: No Current occupational status: employed Cognitive needs: No Hearing needs: No Vision needs: No Review of Systems Const All systems reviewed & are unremarkable except as noted in HPI and below Physical Exam Vital Signs: Last Vital Signs Temp 97.9 F 12/13/24 07:44 Pulse 88 12/13/24 07:44 Resp 16 12/13/24 07:44 BP 110/64 12/13/24 07:44 Pulse Ox 100 12/13/24 07:44 Oxygen Delivery Method Room Air 12/13/24 07:44 BMI result Body Mass Index 24.7 Assessment & Plan Assessment & Plan (1) URI with cough and congestion: Code(s): J06.9 - Acute upper respiratory infection, unspecified Plan Most likely URI vs viral illness vs covid vs flu vs RSV plan - Prescribed decongestants and antihistamines for symptom relief. - Recommended alternating Tylenol and Motrin for pain management. - will order a resp panel - advised rest and hydration pending results. - will call her with the results - follow up with PCP as needed Orders: [place] Resp [place]ogen [place] [facility] [facility] [place] J06.9 - Acute upper respiratory infection, unspecified Medications: New benzonatate 100 mg PO bid-tid PRN 21 caps 0RF Cough 7 days cetirizine-pseudoephedrine 5-120 mg ER 1 tab PO BID 14 tabs 0RF 7 days Coding Level of Care Code Est Pt Level 3 (83217) Diagnoses URI with cough and congestion J06.9
== END 2024-12-13 08:28 | disposition home or self-care (01) ==
PROVIDERS: PCP Internal Medicine; Visit Provider Physician Assistant Medical
DX: J06.9 Acute upper respiratory infection, unspecified (principal)